=== PATIENT | female | born 1980 | race Caucasian/White ===

== ENCOUNTER 2020-11-14 14:06 | Outpatient (REF) | payer OTHER, SELFPAY ==
--- NOTE | 2020-11-14 | MM_ITS ---
EXAMINATION: MM SCREENING DIGITAL BREAST TOMOSYNTHESIS, BILATERAL CLINICAL INFORMATION: Screening. Asymptomatic. Family history breast cancer, mother, age 56. The lifetime risk of breast cancer based on the Tyrer-Cuzick Model is 26%. COMPARISON: Mammography: 03/29/2017 TECHNIQUE: Digital breast tomosynthesis is performed in both the craniocaudal and mediolateral oblique views along with computer-aided detection (CAD). Synthesized 2D images are generated from the tomosynthesis. FINDINGS: The breasts are heterogeneously dense, which may obscure small masses (ACR BI-RADS breast composition Category c). There are no significant masses, abnormal calcifications, or other abnormalities. Breast tissue composition borders on average fibroglandular. The axilla and skin contours are unremarkable. MM/MM tomosynthesis screening BI IMPRESSION: No significant changes from baseline exam 2016. ASSESSMENT: BI-RADS 1: Negative RECOMMENDATION: Routine annual mammography screening. This patient's information was entered into a reminder system with a target due date for their next mammogram.
== END 2020-11-14 14:07 | disposition home or self-care (01) ==
LOC: HO.MAMMO 14:06
PROVIDERS: PCP Internal Medicine; Visit Provider Psychiatry & Neurology Psychiatry
DX: Z12.31 Encounter for screening mammogram for malignant neoplasm of breast (principal)
CPT/HCPCS: 77063; 77067

== ENCOUNTER 2021-08-01 09:58 | Outpatient (REF) | payer OTHER, SELFPAY ==
[2021-08-02 12:45] LABS: BV Int Neg Control Negative (Negative); BV Int Pos Control Positive (Positive)
[2021-08-06 22:03] LABS: HPV mRNA E6/E7 rflx Not Detected (Not Detected)
== END 2021-08-01 09:59 | disposition home or self-care (01) ==
LOC: HO.LAB 09:58
PROVIDERS: Visit Provider Advanced Practice Midwife
DX: Z01.411 Encounter for gynecological examination (general) (routine) with abnormal findings (principal); Z11.3 Encounter for screening for infections with a predominantly sexual mode of transmission; Z11.51 Encounter for screening for human papillomavirus (HPV); N89.8 Other specified noninflammatory disorders of vagina
CPT/HCPCS: 87480; 87510; 87624; 87660; 88142

== ENCOUNTER 2021-12-15 16:25 | Outpatient (REF) | payer OTHER, SELFPAY ==
--- NOTE | ~2021-12-15 | MM_ITS ---
EXAMINATION: MM SCREENING DIGITAL BREAST TOMOSYNTHESIS, BILATERAL CLINICAL INFORMATION: Screening. Asymptomatic. Family history breast cancer, mother. The lifetime risk of breast cancer based on the Tyrer-Cuzick Model is 26%. COMPARISON: Mammography: 11/14/2020, 03/29/2017 TECHNIQUE: Digital breast tomosynthesis is performed in both the craniocaudal and mediolateral oblique views along with computer-aided detection (CAD). Synthesized 2D images are generated from the tomosynthesis. FINDINGS: The breasts are heterogeneously dense, which may obscure small masses (ACR BI-RADS breast composition Category c). There are no significant masses, abnormal calcifications, or other abnormalities. Parenchymal pattern is similar to prior studies. There is no developing density or architectural abnormality. Breast tissue composition borders on average fibroglandular. The axilla and skin contours are unremarkable. No significant changes. MM/MM tomosynthesis screening BI IMPRESSION: No mammographic evidence of malignancy. ASSESSMENT: BI-RADS 1: Negative RECOMMENDATION: 1. Routine annual mammography screening. 2. The lifetime risk of breast cancer based on the Tyrer-Cuzick Model is 26%. Additional annual adjunct screening with breast MRI may be of benefit in women with a risk score of 20% or greater. This patient's information was entered into a reminder system with a target due date for their next mammogram.
== END 2021-12-15 16:26 | disposition home or self-care (01) ==
LOC: HO.MAMMO 16:25
PROVIDERS: PCP Internal Medicine; Visit Provider Internal Medicine
DX: Z12.31 Encounter for screening mammogram for malignant neoplasm of breast (principal)
CPT/HCPCS: 77063; 77067

== ENCOUNTER 2023-01-15 11:52 | Outpatient (REF) | payer OTHER, SELFPAY ==
--- NOTE | ~2023-01-15 | MM_ITS ---
EXAMINATION: MM SCREENING DIGITAL BREAST TOMOSYNTHESIS, BILATERAL CLINICAL INFORMATION: Screening. Asymptomatic. Family history breast cancer, mother. The lifetime risk of breast cancer based on the Tyrer-Cuzick Model is 24%. COMPARISON: Mammography: 12/15/2021, 11/14/2020, 03/29/2017 (baseline) TECHNIQUE: Digital breast tomosynthesis is performed in both the craniocaudal and mediolateral oblique views along with computer-aided detection (CAD). Synthesized 2D images are generated from the tomosynthesis. FINDINGS: The breasts are heterogeneously dense, which may obscure small masses (ACR BI-RADS breast composition Category c). Right breast parenchymal pattern is similar to prior study. There is no developing density or interval architectural abnormality in either breast shows abnormal calcifications. The bilateral axilla and skin contours are unremarkable. Left MLO view has question of nodular asymmetric density anterior breast within 2 cm of nipple. Patient will be recalled for additional imaging. MM/MM tomosynthesis screening BI IMPRESSION: Left: -Nodular asymmetric density anterior breast on MLO view possibly summation artifact. Right: -No mammographic evidence of malignancy. ASSESSMENT: BI-RADS 0: Incomplete - Need Additional Imaging Evaluation RECOMMENDATION: 1. Additional views of the left breast (spot MLO, standard ML). 2. Targeted ultrasound if warranted after review of the additional views. 3. Radiology department staff will contact the patient for additional imaging. This patient's information was entered into a reminder system with a target due date for their next mammogram.
== END 2023-01-15 11:53 | disposition home or self-care (01) ==
LOC: HO.MAMMO 11:52
PROVIDERS: PCP Internal Medicine; Visit Provider Internal Medicine
DX: Z12.31 Encounter for screening mammogram for malignant neoplasm of breast (principal)
CPT/HCPCS: 77063; 77067

== ENCOUNTER 2023-01-20 08:22 | Outpatient (REF) | payer OTHER, SELFPAY ==
--- NOTE | ~2023-01-20 | MM_ITS ---
EXAMINATION: MM DIAGNOSTIC DIGITAL BREAST TOMOSYNTHESIS, LEFT US DIAGNOSTIC ULTRASOUND BREAST, LEFT CLINICAL INFORMATION: Recall from screening for asymmetric density anterior breast on MLO view, possibly summation artifact. Family history breast cancer, mother. TC score 24%. COMPARISON: Prior mammography exams, most recent 01/15/2023. TECHNIQUE: Digital breast tomosynthesis is performed. 2D images are generated from the tomosynthesis. The following views are obtained: Spot MLO, standard ML. Ultrasound left breast is targeted to the anterior breasts 9:00 through 3:00 position. Grayscale imaging and color Doppler are performed without and with harmonics. FINDINGS: The breasts are heterogeneously dense, which may obscure small masses (ACR BI-RADS breast composition Category c). The additional views show benign-appearing fibroglandular tissue anterior upper left breast without architectural abnormality. Ultrasound demonstrates incidental grouped microcysts anterior 12:00 position under 1 cm in overall size. There is no solid mass or architectural abnormality or focal duct ectasia. Results are discussed with the patient at time of visit. MM/MM tomosynthesis added views L IMPRESSION: -Incidental grouped microcysts anterior 12:00 position under 1 cm. -No solid mass or architectural abnormality. -No significant changes from prior studies. ASSESSMENT: BI-RADS 2: Benign RECOMMENDATION: -Routine annual mammography screening. -Additional annual adjunct screening with breast MRI may be of benefit in women with a breast cancer lifetime risk score of 20% or greater. This patient's information was entered into a reminder system with a target due date for their next mammogram.
== END 2023-01-20 08:23 | disposition home or self-care (01) ==
LOC: HO.MAMMO 08:22
PROVIDERS: PCP Internal Medicine; Visit Provider Internal Medicine
DX: R92.2 Inconclusive mammogram (principal)
CPT/HCPCS: 76642; 77061; 77065

== ENCOUNTER 2023-05-06 09:14 | Outpatient (REF) | payer OTHER, SELFPAY ==
[2023-05-06 17:09] LABS: CT PCR NOT DETECTED (Not Detect.); NG PCR NOT DETECTED (Not Detect.)
[2023-05-07 13:45] LABS: BV Int Neg Control Negative (Negative); BV Int Pos Control Positive (Positive)
[2023-05-13 02:08] LABS: HPV mRNA E6/E7 rflx Not Detected (Not Detected)
== END 2023-05-06 09:15 | disposition home or self-care (01) ==
LOC: HO.LNP 09:14
PROVIDERS: PCP Nurse Practitioner Family; Visit Provider Advanced Practice Midwife
DX: Z01.419 Encounter for gynecological examination (general) (routine) without abnormal findings (principal); G43.909 Migraine, unspecified, not intractable, without status migrainosus; Z91.410 Personal history of adult physical and sexual abuse; Z20.2 Contact with and (suspected) exposure to infections with a predominantly sexual mode of transmission; Z79.899 Other long term (current) drug therapy
CPT/HCPCS: 0353U; 87480; 87510; 87624; 87660; 88142

== ENCOUNTER 2023-11-29 09:53 | Outpatient (REF) | payer OTHER, SELFPAY ==
[2023-11-29 13:41] LABS: MANUAL DIFF FLAG NO
[2023-11-29 13:46] LABS: Basophils Absolute Auto 0.1 X10*3/uL (0.0-0.2); Basophils Percent Auto 0.7 % (0-2); Eosinophils Absolute Auto 0.2 X10*3/uL (0.0-0.4); Hematocrit 40.1 % (37.0-47.0); Hemoglobin 13.8 g/dl (12.0-16.0); Imm Gran Abs Auto 0.02 X10*3/uL (0.00-0.03); Imm Gran Pct Auto 0.3 % (0.0-0.4); Lymphocytes Absolute Auto 2.8 X10*3/uL (1.2-4.9); Lymphocytes Percent Auto 35.8 % (20-40); Mean Corpuscular HGB Conc 34.4 g/dl (31.0-35.0); Mean Corpuscular Hemoglobin 30.5 pg (27.0-33.0); Mean Corpuscular Volume 88.7 fL (80.0-98.0); Mean Platelet Volume 10.9 fL (9.4-12.3); Monocytes Absolute Auto 0.6 X10*3/uL (0.1-1.2); Monocytes Percent Auto 7.4 % (2-11); Neutrophils Absolute Auto 4.1 x10*3/uL (2.0-8.3); Neutrophils Percent Auto 52.8 % (45-73); Platelet Count 230 X10*3/uL (160-400); Red Blood Count 4.52 X10*6/uL (4.20-5.50); Red Cell Distribution Width 12.8 % (11.0-16.0); White Blood Count 7.7 X10*3/uL (4.8-10.8)
[2023-11-29 13:49] LABS: Appearance Urine Turbid; Color Urine Dark Yellow; Glucose Urine UA Negative (Negative); Leukocyte Esterase Urine Moderate (2+) (Negative); Nitrite Urine Negative (Negative); UMIC TRIGGER UACC YES; Urine Blood Trace (Negative); Urine Ketones Trace mg/dL (Negative); Urine Protein Negative (Neg-Trace)
[2023-11-29 13:53] LABS: Bacteria Urine 1+ (None Seen); Hyaline Casts Urine 0-2 /LPF (0-2); RBC Urine 0-2 /HPF (0-2); UACC Culture Trigger YES
[2023-11-29 14:14] LABS: Alanine Aminotransferase 10 U/L (0-31); Alkaline Phosphatase 55 U/L (39-117); Anion Gap 11 (12-20); Aspartate Amino Transferase 13 U/L (5-31); Blood Urea Nitrogen 6 mg/dL (9-16); Calcium 9.4 mg/dL (8.4-10.2); Carbon Dioxide 25 mmol/L (22-29); Chloride 107 mmol/L (96-108); Cholesterol 179 mg/dL (<200); Estimated Glomerular Filt Rate > 60; Glucose Fasting 97 mg/dL (60-99); HDL Cholesterol 58 mg/dL (>40); LDL Cholesterol Calculated 107 mg/dL (<100); Potassium 3.6 mmol/L (3.3-5.1); Sodium 139 mmol/L (135-145); Triglycerides 72 mg/dL (<150)
[2023-11-29 14:30] LABS: TSH reflex Free T4 1.24 uIU/mL (0.32-4.0); Vitamin D 25-OH Total 37.5 ng/mL (>30)
== END 2023-11-29 09:54 | disposition home or self-care (01) ==
LOC: HO.HMGCLDS 09:53
PROVIDERS: PCP Nurse Practitioner Family; Visit Provider Nurse Practitioner Family
DX: Z00.00 Encounter for general adult medical examination without abnormal findings (principal); Z13.220 Encounter for screening for lipoid disorders; Z13.29 Encounter for screening for other suspected endocrine disorder; Z13.9 Encounter for screening, unspecified
CPT/HCPCS: 36415; 80053; 80061; 81001; 82306; 84443; 85025; 87086

== ENCOUNTER 2023-11-29 15:48 | Outpatient (AMB) | payer OTHER, SELFPAY ==
[2023-11-29 15:51] VITALS: BP 142/80; PULSE 67; O2SAT 95; BMI 22.5
--- NOTE | 2023-11-29 15:51 | A.OFFPC_ITS ---
Vital Signs 11/29/23 15:51 11/29/23 16:29 Height 5 ft 8 in Weight 148 lb 4 oz BMI 22.5 BP 142/80 H 100/70 Blood Pressure Location Lt brachial Rt brachial Position Sitting Sitting Pulse 67 Pulse Source Pulse Oximeter Pulse Oximetry (%) 95 Oxygen Delivery Method Room Air Intake Visit Reasons: Migraine/Stress/Anxiety Intake Note: Pt is here for Migraines anxiety and stress exacerbation and has FMLA paper work to be filled out Allergies latex Allergy (Intermediate, Verified 11/29/23 16:18) irritation Medication List - Last Reconciled 11/29/23 by Kristy Robbins, CURT bwyecbfjwm-smonffetfywbr-spss 50-300-40 mg (Fioricet) 1 cap PO Q4-6H PRN cholecalciferol (vitamin D3) 125 mcg PO DAILY lorazepam 0.5 mg PO BID PRN magnesium oxide 400 mg PO DAILY 30 days clwdg-[id number]-aug-epa-fish oil 300-250-1,000 mg 2 caps PO DAILY ondansetron 4 mg PO Q6-8H PRN sumatriptan succinate take 1 tab at onset of headache; if no relief may repeat 1 tab after at least 2 hrs; max = 4 tabs/24 hr PO Tobacco use date assessed: 11/29/23 Dental Screening Dental Screen Date: 11/29/23 Did you have a dental visit in the last 12 months?: Yes Did you have a dental problem in the last 6 months where you did not have access to dental care?: No Was dental information given to patient?: Patient has dentist HPI HPI Comments History of Present Illness Details 43-year-old female presents for anxiety, depression, and migraine follow-up She reports mild right sided headache. No current nausea, vomiting, photophobia, or phonophobia She reports increased anxiety and depression which she attributes work related stress and her migraines is related to her anxiety and depression She reports 10-year history of migraines. She states that she has never been evaluated by a neurologist She notes that her workplace recommended some time off from work to manage her current symptoms She notes that she is followed by a psychiatrist via telehealth every 6 months. She wants a referral to a therapist She notes that she is out sumatriptan, ondansetron, and magnesium oxide [facility] Medical History (Updated 06/07/23 @ 17:38 by Kasandra Nettles CNM) Insomnia Migraine Depression Anxiety Surgical History No pertinent past surgical history Family History Father No problems noted. Mother Breast cancer, Onset Age: 57 Osteoarthritis Brother No problems noted. Sister No problems noted. 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 Thad Noonan, Kerry Hathaway, Margarito Tovar and colleagues, with an educational corina from [employer]. Review of Systems Const Details: Const Denies chills, Denies fatigue, Denies fever(s), Denies headache(s) and Denies weakness ENT Denies dizziness and Denies headache(s) Card Denies chest pain, Denies lightheadedness, Denies dyspnea and Denies other (Palpitations) Resp Denies cough, Denies dyspnea, Denies wheezing and Denies other ( shortness of breath) GI Denies abdominal pain, Denies melena, Denies hematochezia, Denies change in bowel habits, Denies dyspepsia and Denies nausea Denies hematuria and Denies dysuria Musc Denies abnormal gait, Denies myalgias, Denies arthralgias, Denies numbness and Denies tingling Skin/Breast Denies rash, Denies unusual bruising and Denies wounds Neuro Denies abnormal gait, Denies dizziness, Denies headache(s), Denies memory loss, Denies numbness, Denies Sensory deficit (Neuro), Denies tingling and Denies weakness Psych Reports anxiety, Reports depression, Denies memory loss Endo Denies cold intolerance, Denies fatigue, Denies heat intolerance, Denies polydipsia and Denies polyuria Aller/Immun Denies wheezing Physical exam (Primary Care) Vital Signs: Last Vital Signs Pulse 67 11/29/23 15:51 BP 100/70 11/29/23 16:29 Pulse Ox 95 11/29/23 15:51 Oxygen Delivery Method Room Air 11/29/23 15:51 BMI result Body Mass Index 22.5 Tobacco/Smoking Status: Tobacco use Status Tobacco use date assessed 11/29/23 11/29/23 16:02 Patient Tobacco Use Status Never used Tobacco 11/29/23 16:02 e-Cigarette/Vaping Use Never Used 11/29/23 16:02 Thrive Assessment: Date of Thrive Assessment Date Thrive assessed 05/11/23 11/29/23 16:02 Const Other: General: no acute distress and well developed Nutritional Appearance: well nourished Orientation/consciousness: patient oriented x3 HENMT Head: Yes normocephalic and Yes atraumatic Eyes General: appearance normal, both eyes and all related structures Pupils: Equal, round and reactive pupils present EOM: EOMs intact bilaterally Resp Effort & Inspection: normal respiratory effort Auscultation: clear to auscultation bilaterally Cardio Rate: regular rate Rhythm: regular rhythm Heart sounds: S1 normal heart sound present, S2 normal heart sound present, no gallops, no murmurs and no rubs GI Palpation (GI): No Abdominal aortic bruit present, Soft to palpation, nontender, No hepatosplenomegaly present and No Rebound tenderness present Auscultation: normal bowel sounds General: Yes no CVA tenderness Back/Spine/Pelvis Back: no CVA tenderness Cervical Spine: cervical ROM normal and No Cervical spine tenderness Thoracic/Lumbar Spine: thoraco-lumbar ROM normal, No pain with thoraco-lumbar ROM, No thoracic spinal tenderness and No lumbar spinal tenderness Extrem General: Yes normal to inspection, No edema and No calf tenderness Skin General: warm and dry. Normal skin color. Normal skin turgor Lesions: no lesions Rashes: no rashes Trauma: no lacerations or abrasions Wounds: no wounds Nails: normal Neuro General: patient oriented x3, gait normal and no focal neuro deficit Cranial nerves: Yes Equal, round and reactive pupils present Cognition (Neuro): normal cognition Gait exam (Neuro): Normal gait present Sensory Exam: No Sensory deficit (Neuro) Psych Appearance: grossly normal Affect: normal affect Attitude: cooperative Thought process: Normal thought process present Assessment and Plan Assessment & Plan (1) Migraine: Code(s): G43.909 - Migraine, unspecified, not intractable, without status migrainosus Plan: Sumatriptan, ondansetron, and magnesium oxide refilled. Take as prescribed Routine exercise encouraged Referred to neurology She brought an FMLA form which will be filled out within 7-10 business days Follow-up in 1 month or return sooner with worsening or new symptoms Verbalized understanding and agreed with treatment plan (2) Anxiety: Code(s): F41.9 - Anxiety disorder, unspecified Plan: PHQ-9 and THEO-7 scores revealed Continue current treatment regimen Healthy diet and routine exercise encouraged Continue follow-up with psychiatrist as planned Message sent to our community navigator to connect with patient for a referral to a therapist Follow-up in 1 month or return sooner with worsening or new symptoms Verbalized understanding and agreed with treatment plan (3) Depression: Code(s): F32.9 - Major depressive disorder, single episode, unspecified Plan: As above Orders: Referrals Neurology Referral G43.909 - Migraine, unspecified, not intractable, without status migrainosus Medications: Refilled magnesium oxide 400 mg PO DAILY 30 days 30 tabs 2RF ondansetron 4 mg PO Q6-8H PRN 30 tabs 0RF nausea and vomiting sumatriptan succinate take 1 tab at onset of headache; if no relief may repeat 1 tab after at least 2 hrs; max = 4 tabs/24 hr PO 30 tabs 0RF Coding Level of Care Code Est Pt Level 4 (67579) Diagnoses Migraine G43.909 Anxiety F41.9 Depression F32.9
[2023-11-29 16:29] VITALS: BP 100/70
--- NOTE | 2023-11-30 09:18 | ...WebTmpl.AM.PHNO ---
PHQ-9 Over the last 2 weeks, how often have you been bothered by any of the following problems? 1. Little interest or pleasure in doing things: several days 2. Feeling down, depressed, or hopeless: more than half the days 3. Trouble falling or staying asleep, or sleeping too much: nearly every day 4. Feeling tired or having little energy: several days 5. Poor appetite or overeating: not at all 6. Feeling bad about yourself - or that you are a failure or have let yourself or your family down: more than half the days 7. Trouble concentrating on things, such as reading the newspaper or watching television: more than half the days 8. Moving or speaking so slowly that other people could have noticed. Or the opposite - being so fidgety or restless that you have been moving around a lot more than usual: more than half the days 9. Thoughts that you would be better off or of hurting yourself in some way: not at all Total score: 13 Depression Screening Interpretation: Positive Depression Screening Done: Yes 87046 - PHQ-9 Billing: Yes Source: Developed by Drs. Thad Noonan, Kerry Hathaway, Margarito Tovar and colleagues, with an educational corina from [employer]. THEO-7 AMB Questionnaire THEO-7 Date THEO - 7 assessed: 05/11/23 Feeling nervous, anxious, or on edge: 3 = Nearly every day Not being able to stop or control worryin = Nearly every day Worrying too much about different things: 3 = Nearly every day Trouble relaxin = Nearly every day Being so restless that it is hard to sit still: 2 = More than half the days Becoming easily annoyed or irritable: 3 = Nearly every day Feeling afraid as if something awful might happen: 2 = More than half the days Total THEO-7 score (0-4 normal; 5-9 mild; 10-14 moderate; 15-21 severe): 19 Source: Developed by Drs. Thad Noonan, Kerry Hathaway, Margarito Tovar and colleagues, with an educational corina from [employer]. THEO-7 Assessment Billing THEO-7 Assessment Tool: THEO-7 Assessment [id number]
== END 2023-11-29 16:54 | disposition home or self-care (01) ==
PROVIDERS: PCP Nurse Practitioner Family; Visit Provider Nurse Practitioner Family
DX: G43.909 Migraine, unspecified, not intractable, without status migrainosus (principal); F41.9 Anxiety disorder, unspecified; F32.9 Major depressive disorder, single episode, unspecified
CPT/HCPCS: 99214

== ENCOUNTER 2024-03-22 13:44 | Outpatient (REF) | payer MEDICAID, SELFPAY ==
[2024-03-22 16:17] LABS: Hematocrit 38.8 % (37.0-47.0); Hemoglobin 13.5 g/dl (12.0-16.0); Mean Corpuscular HGB Conc 34.8 g/dl (31.0-35.0); Mean Corpuscular Volume 89.2 fL (80.0-98.0); Mean Platelet Volume 10.6 fL (9.4-12.3); Platelet Count 236 X10*3/uL (160-400); Red Blood Count 4.35 X10*6/uL (4.20-5.50); Red Cell Distribution Width 13.3 % (11.0-16.0); White Blood Count 13.7 X10*3/uL (4.8-10.8)
[2024-03-22 16:25] LABS: Estimated Average Glucose 103 mg/dL; Hemoglobin A1c % 5.2 % (<6.0)
[2024-03-22 16:47] LABS: Alanine Aminotransferase 21 U/L (0-31); Albumin Level 4.3 g/dL (3.5-5.0); Alkaline Phosphatase 59 U/L (39-117); Anion Gap 15 (12-20); Aspartate Amino Transferase 23 U/L (5-31); Bilirubin Direct 0.2 mg/dL (0.0-0.5); Bilirubin Total 0.6 mg/dL (0.0-1.0); Blood Urea Nitrogen 8 mg/dL (9-16); Calcium 9.5 mg/dL (8.4-10.2); Carbon Dioxide 23 mmol/L (22-29); Chloride 106 mmol/L (96-108); Cholesterol 214 mg/dL (<200); Estimated Glomerular Filt Rate > 60; Glucose Random 91 mg/dL (60-115); HDL Cholesterol 67 mg/dL (>40); LDL Cholesterol Calculated 130 mg/dL (<100); Potassium 3.9 mmol/L (3.3-5.1); Sodium 140 mmol/L (135-145); Total Protein 7.4 g/dL (6.5-8.0); Triglycerides 89 mg/dL (<150)
[2024-03-22 17:08] LABS: Free T4 (Free Thyroxine) 0.73 ng/dL (0.71-1.85); Thyroid Stimulating Hormone 1.57 uIU/mL (0.32-4.0); Vitamin D 25-OH Total 45.7 ng/mL (>30)
[2024-03-23 04:26] LABS: HBsAGNum1 0.21 S/CO (0.00-0.99); Hepatitis B Surface Antigen Negative (Negative)
[2024-03-23 04:34] LABS: Hepatitis A Antibody IgG Nonreactive (Nonreactive); ~Hepatitis A Antibody IgG 0.55 S/CO (0.00-0.99)
== END 2024-03-22 13:45 | disposition home or self-care (01) ==
LOC: HO.HHCL 13:44
PROVIDERS: Visit Provider Family Medicine
DX: Z00.00 Encounter for general adult medical examination without abnormal findings (principal); Z68.24 Body mass index [BMI] 24.0-24.9, adult; G43.909 Migraine, unspecified, not intractable, without status migrainosus; F33.9 Major depressive disorder, recurrent, unspecified; M67.432 Ganglion, left wrist
CPT/HCPCS: 36415; 80048; 80061; 80076; 82306; 83036; 84439; 84443; 85027; 86708; 87340

== ENCOUNTER → 2024-04-03 09:30 | Outpatient (BNV) | payer MEDICAID, SELFPAY | PROVIDERS: PCP Family Medicine; Visit Provider Radiology Diagnostic Radiology | DX: Z12.31 Encounter for screening mammogram for malignant neoplasm of breast (principal) | CPT/HCPCS: 77063; 77067 ==

== ENCOUNTER 2024-04-03 09:32 | Outpatient (REF) | payer MEDICAID, SELFPAY | END 2024-04-03 09:33 | disposition home or self-care (01) | LOC: HO.MAMMO 09:32 | PROVIDERS: PCP Family Medicine; Visit Provider Family Medicine | DX: Z12.31 Encounter for screening mammogram for malignant neoplasm of breast (principal) | CPT/HCPCS: 77063; 77067 ==

== ENCOUNTER 2025-06-07 15:51 | Outpatient (REF) | payer MEDICAID, SELFPAY | END 2025-06-07 15:52 | disposition home or self-care (01) | LOC: HO.MAMMO 15:51 | PROVIDERS: Visit Provider Family Medicine | DX: Z12.31 Encounter for screening mammogram for malignant neoplasm of breast (principal) | CPT/HCPCS: 77063; 77067 ==

== ENCOUNTER → 2025-06-07 16:30 | Outpatient (BNV) | payer MEDICAID, SELFPAY | PROVIDERS: Visit Provider Internal Medicine | DX: Z12.31 Encounter for screening mammogram for malignant neoplasm of breast (principal) | CPT/HCPCS: 77063; 77067 ==

== ENCOUNTER 2025-07-10 15:30 | Outpatient (REF) | payer OTHER, MEDICAID, SELFPAY ==
--- OUTSIDE RECORDS SUMMARY | 2025-07-09 11:45 | XMS_ITS | Encounter Summary ---
Author Organization [employer] Address [address] [place] [address] [address] [address] Care Team Providers Care Biomedical Repair Technician Name Role Phone Giovana Reyes DO Primary Care Provider [phone] Reason for Referral * Consultation (Urgent) - Authorized Specialty Diagnoses / Procedures Referred By Lorenzo sandoval Referred To Contact Behavioral Health Diagnoses Anxiety Giovana Reyes DO [address] [place] [address] Phone: tel: fax: Referral ID Status Reason Start Date Expiration Date Visits Requested Visits Authorized [id number] Authorized Specialty Services Required 07/09/2025 07/09/2026 1 1 * Consultation (Urgent) - Pending Review Specialty Diagnoses / Procedures Referred By Lorenzo sandoval Referred To Contact Gastroenterology Diagnoses Alternating constipation and diarrhea Bloody diarrhea Giovana Reyes DO [address] [place] [address] Phone: tel: fax: Referral ID Status Reason Start Date Expiration Date Visits Requested Visits Authorized [id number] Pending Review Specialty Services Required 07/09/2025 07/09/2026 1 1 Encounter Details Date Type Department Care Team (Late st Contact Info) Description 07/09/2025 11:45 AM EDT Office Visit [facility] [address] [place] [address] Giovana Reyes DO [address] [place] [address] Anxiety (Primary Dx); Alternating constipation and diarrhea; Bloody diarrhea; Chronic migraine Social History Tobacco Use Types Packs/Day Years Used Date Smoking Tobacco: Never Smokeless Tobacco: Never Alcohol Use Standard Drinks/Week Comments Yes 1 (1 standard drink = 0.6 oz pur e alcohol) Alcohol Answer Date Recorded How often do you have a drink containing alcohol ? 1 07/09/2025 How many drinks containing a lcohol do you have on a typical day when you are drinking? 0 07/09/2025 How often do you have six or more drinks on one occasion? 0 07/09/2025 Depression Answer Date Recorded Patient Health Questionnaire-9 Score 4 07/09/2025 Patient Health Questionnaire-9 Score 4 07/09/2025 Last PHQ-9: Questionnaire Data Not on file 0 07/09/2025 Housing Stability Answer Date Recorded What is your housing situation today? I have christiano leon 07/09/[address] you li ve. Do you have problems with any of the following? None of the above 07/09/2025 Food Insecurity Answer Date Recorded Within the past 12 months, y ou worried that your food would run out before you got money to buy more: Sometimes True 2024 Within the past 12 months,th e food you bought just didn't last and you didn't have enough money to get more: Sometimes True 07/09/2025 Transportation Answer Date Recorded In the past 12 months, has l ack of transportation kept you from medical appts, meetings, work or from getting things needed for daily living? No 07/09/2025 Utilities Answer Date Recorded In the past 12 months, has t he electric, gas, oil or water company threatened to shut off services in your home? No 07/09/2025 Depression Answer Date Recorded Patient Health Questionnaire-2 Score 0 07/09/2025 Internet Access Answer Date Recorded Internet Access Q1 Yes 07/09/2025 Internet Access Q2 Not on file 07/09/2025 Comments No Sex and Gender Information Value Date Recorded Sex Assigned at Female 03/20/2024 2:03 PM EDT Legal Sex Female 2:02 PM EDT Gender Identity Other 03/21/2024 10:13 AM EDT Sexual Orientation Don't know 03/21/2024 10 :13 AM EDT documented as of this encounter Last Filed Vital Signs Vital Sign Reading Time Taken Comments Blood Pressure 132/70 07/09/2025 12:19 PM EDT Pulse 70 07/09/2025 12:19 PM EDT Temperature 36.6 C (97.8 F) 07/09/2025 12:19 PM EDT Respiratory Rate 18 07/09/2025 12:19 PM EDT Oxygen Saturation 97% 07/09/2025 12:19 PM EDT Inhaled Oxygen Concentration - - Weight 68.5 kg (151 lb 2 oz) 07/09/2025 12:19 PM EDT Height 167.6 cm (5' 6 ) 07/09/2025 12:19 PM EDT Body Mass Index 24.39 07/09/2025 12:19 PM EDT documented in this encounter Functional Status * Over the past 2 weeks, how often have you been bothered by any of the following problems? Question Answer Date of Assessment Author Patient Health Questionnaire -2 Score 0 07/09/2025 1:40 PM EDT Cassidy Thurman MA * Little interest or pleasure in doing things Answer Date of Assessment Author Not at all 07/09/2025 1:40 PM EDT Shelby Thumran MA * Feeling down, depressed, or hopeless Answer Date of Assessment Author Not at all 07/09/2025 1:40 PM EDT Shelby Thurman MA * Trouble falling or staying asleep, or sleeping too much Answer Date of Assessment Author More than half the days 07/09/2025 1:40 PM EDT Cassidy Amaya MA * Feeling tired or having little energy Answer Date of Assessment Author Not at all 07/09/2025 1:40 PM EDT Shelby Thurman MA * Poor appetite or overeating Answer Date of Assessment Author Not at all 07/09/2025 1:40 PM EDT Shelby Thurman MA * Feeling bad about yourself - or that you are a failure or have let yourself or your family down Answer Date of Assessment Author Not at all 07/09/2025 1:40 PM EDShelby Tian MA * Trouble concentrating on things, such as reading the newspaper or watching television Answer Date of Assessment Author More than half the days 07/09/2025 1:40 PM EDT Cassidy Amaya MA * Moving or speaking so slowly that other people could have noticed? Or the opposite - being so fidgety or restless that you have been moving around a lot more than usual. Answer Date of Assessment Author Not at all 07/09/2025 1:40 PM EDT Shelby Thurman MA * Thoughts that you would be better off or hurting yourself in some way Answer Date of Assessment Author Not at all 07/09/2025 1:40 PM PADMINIT Shelby Thurman MA * Patient Health Questionnaire-9 Score Answer Date of Assessment Author 4 07/09/2025 1:40 PM PADMINIT Shelby Thurman MA * How difficult have these problems made it for you to do your work, take care of things at home, or get along with other people? Answer Date of Assessment Author Very difficult 07/09/2025 1:40 PM PADMINIT Shelby Thurman MA * Over the last 2 weeks, how often have you been bothered by any of the following problems? Question Answer Date of Assessment Author Feeling nervous, anxious, or on edge 2 07/09/2025 1:42 PM EDT Cassidy Thurman MA Not being able to stop or co ntrol worrying 2 07/09/2025 1:42 PM PADMINIT Cassidy Thurman MA Worrying too much about diff erent things 3 07/09/2025 1:42 PM EDT Cassidy Thurman MA Trouble relaxing 3 07/09/2025 1:42 PM EDT Cassidy Amaya MA Being so restless that it is hard to sit still 2 07/09/2025 1:42 PM PADMINIT Cassidy Thurman MA Becoming easily annoyed or irritable 0 07/09/2025 1:42 PM PADMINIT Cassidy Thurman MA Feeling afraid as if somethi ng awful might happen 2 07/09/2025 1:42 PM EDCassidy Tian MA THEO-7 Total Score 14 07/09/2025 1:42 PM EDT Cassidy Thurman MA documented as of this encounter Plan of Treatment Scheduled Orders Name Type Priority Associated Diagnoses Orde r Schedule T4, Free Lab Routine Anxiety Alternating constipation and diarrhea Bloody diarrhea Chronic migraine Expected: 07/09/2025 (Approximate), Expires: 07/09/2026 Lipid Panel, Standard Lab Routine Anxiety Alternating constipation and diarrhea Bloody diarrhea Chronic migraine Expected: 07/09/2025 (Approximate), Expires: 07/09/2026 TSH Lab Routine Anxiety Alternating constipation and diarrhea Bloody diarrhea Chronic migraine Expected: 07/09/2025 (Approximate), Expires: 07/09/2026 Vitamin D, 25-Hydroxy, Total, Immunoassay Lab Routine Anxiety Alternating constipation and diarrhea Bloody diarrhea Chronic migraine Expected: 07/09/2025 (Approximate), Expires: 07/09/2026 Hepatic Function Panel Lab Routine Anxiety Alternating constipation and diarrhea Bloody diarrhea Chronic migraine Expected: 07/09/2025 (Approximate), Expires: 07/09/2026 Hemoglobin A1c Lab Routine Anxiety Alternating constipation and diarrhea Bloody diarrhea Chronic migraine Expected: 07/09/2025 (Approximate), Expires: 07/09/2026 CBC Lab Routine Anxiety Alternating constipation and diarrhea Bloody diarrhea Chronic migraine Expected: 07/09/2025, Expires: 07/09/2026 Basic Metabolic Panel Lab Routine Anxiety Alternating constipation and diarrhea Bloody diarrhea Chronic migraine Expected: 07/09/2025 (Approximate), Expires: 07/09/2026 Hepatitis B surface antigen, EIA Lab Routine Anxiety Alternating constipation and diarrhea Bloody diarrhea Chronic migraine Expected: 07/09/2025 (Approximate), Expires: 07/09/2026 Chlamydia/N. Gonorrhoeae RNA, TMA, Urogenitial Microbiology Routine Anxiety Alternating constipation and diarrhea Bloody diarrhea Chronic migraine Ordered: 07/09/2025 HIV-1/2 Antigen and Antibodies, Fourth Generation, with Reflexes Lab Routine Anxiety Alternating constipation and diarrhea Bloody diarrhea Chronic migraine Expected: 07/09/2025 (Approximate), Expires: 07/09/2026 Hepatitis C Antibody with Reflex to HCV, RNA, Quantitative, Real-Time PCR Lab Routine Anxiety Alternating constipation and diarrhea Bloody diarrhea Chronic migraine Expected: 07/09/2025, Expires: 07/09/2026 RPR (Monitor) with Reflex to Titer Lab Routine Anxiety Alternating constipation and diarrhea Bloody diarrhea Chronic migraine Expected: 07/09/2025, Expires: 07/09/2026 Hepatitis B Surface Antibody, Qualitative Lab Routine Anxiety Alternating constipation and diarrhea Bloody diarrhea Chronic migraine Expected: 07/09/2025 (Approximate), Expires: 07/09/2026 Stool - Gastrointestinal panel Microbiology Routine Anxiety Alternating constipation and diarrhea Bloody diarrhea Chronic migraine Expected: 07/09/2025 (Approximate), Expires: 07/09/2026 Leukocytes Stool Qualitative Lab Routine Anxiety Alternating constipation and diarrhea Bloody diarrhea Chronic migraine Expected: 07/09/2025, Expires: 07/09/2026 Giardia Antigen, EIA, Stool Lab Routine Anxiety Alternating constipation and diarrhea Bloody diarrhea Chronic migraine Expected: 07/09/2025, Expires: 07/09/2026 Calprotectin, Stool Lab Routine Bloody diarrhea Expected: 07/09/2025, Expires: 07/09/2026 Scheduled Referrals Name Type Priority Associated Diagnoses Order Schedule Referral to Gastroenterology Outpatient Referral Urgent Alternating constipation and diarrhea Bloody diarrhea Expected: 07/09/2025 (Approximate), Expires: 07/09/2026 Referral to Behavioral Health Outpatient Referral Urgent Anxiety Expected: 07/09/2025 (Approximate), Expires: 01/06/2027 documented as of this encounter Visit Diagnoses Diagnosis Anxiety- Primary Anxiety state, unspecified Alternating constipation and diarrhea Bloody diarrhea Diarrhea Chronic migraine documented in this encounter Additional Health Concerns Assessment Noted Time PHQ-9 Depression Total Score: 4 07/09/20 25 1:40 PM EDT documented as of this encounter Care Teams Biomedical Repair Technician Relationship Specialty Start Date End Date Giovana Reyes DO [address] [place] [id number] PCP - General Family Medicine 03/22/24 documented as of this encounter
--- OUTSIDE RECORDS SUMMARY | 2025-07-10 16:26 | XMS_ITS | Encounter Summary ---
Author Organization [employer] Address [address] [facility] [address] [place] [address] Care Team Providers Care Security Orderly Name Role Phone PipoGiovana andrade Primary Care Provider [phone] Encounter Details Date Type Department Care Team (Latest Contact Info) Description 07/05/2025 Travel Social History Tobacco Use Types Packs/Day Years Used Date Smoking Tobacco: Never Smokeless Tobacco: Never Alcohol Use Standard Drinks/Week Comments Yes 1 (1 standard drink = 0.6 oz pur e alcohol) Depression Answer Date Recorded Patient Health Questionnaire-9 Score 4 03/22/2024 Patient Health Questionnaire-9 Score 4 03/22/2024 Last PHQ-9: Questionnaire Data Not on file 0 03/22/2024 Housing Stability Answer Date Recorded What is your housing situation today? I have christiano leon 03/22/[address] you li ve. Do you have problems with any of the following? None of the above 03/22/2024 Food Insecurity Answer Date Recorded Within the past 12 months, y ou worried that your food would run out before you got money to buy more: Sometimes True 2023 Within the past 12 months,th e food you bought just didn't last and you didn't have enough money to get more: Sometimes True 03/22/2024 Transportation Answer Date Recorded In the past 12 months, has l ack of transportation kept you from medical appts, meetings, work or from getting things needed for daily living? No 03/22/2024 Utilities Answer Date Recorded In the past 12 months, has t he electric, gas, oil or water company threatened to shut off services in your home? Yes 03/22/2024 Depression Answer Date Recorded Patient Health Questionnaire-2 Score 2 03/22/2024 Comments Unknown Sex and Gender Information Value Date Recorded Sex Assigned at Female 03/20/2024 2:03 PM EDT Legal Sex Female 2:02 PM EDT Gender Identity Other 03/21/2024 10:13 AM EDT Sexual Orientation Don't know 03/21/2024 10 :13 AM EDT documented as of this encounter Plan of Treatment Not on file documented as of this encounter Visit Diagnoses Not on filedocumented in this encounter Additional Health Concerns Assessment Noted Time PHQ-9 Depression Total Score: 4 03/22/20 10:20 AM EDT documented as of this encounter Care Teams Security Orderly Relationship Specialty Start Date End Date Giovana Reyes DO [address] [place] [phone] PCP - General Family Medicine 03/22/24 documented as of this encounter
--- OUTSIDE RECORDS SUMMARY | 2025-07-10 16:26 | XMS_ITS | Encounter Summary ---
Author Organization [employer] Address [address] [place] [address] 7 [place] [address] Care Team Providers Care Development And Housing Director Name Role Phone Giovana Reyes DO Primary Care Provider + [phone] Reason for Visit * Reason Onset Date Comments Appointment Request 06/25/2025 Encounter Details Date Type Department Care Team ([facility] st Contact Info) Description 06/25/2025 Telephone [facility] [address] [place], [place] [phone] Giovana Reyes DO [address] [place], [place] [phone] Appointment Request Social History Tobacco Use Types Packs/Day Years [...] AM EDT documented as of this encounter Miscellaneous Notes * Telephone Encounter - Wing Pat RN - 07/05/2025 1:37 PM EDT Tc to pt regarding message below. Pt reports ongoing headaches, anxiety, mood swings, and GI symptoms for 1 month after stopping mirtazapine. Denies any suicidal thoughts. Headaches are triggered by work stress, light and can be relieved by dark quiet rooms, lidocaine sticks and benadryl at night. Stomach discomfort occurs when trying to take acetaminophen and excedra. Had three days of vomiting and diarrhea last week with blood in stool. Pt does not have any vomiting or diarrhea currently but does have some nausea. Pt reports she can go to work though symptoms can sometimes overwhelm her or prevent her from going to work. Pt's psychologist suggested pt restart mirtazapine but pt declined and wanted to see PCP to see if there were other options. Gave pt appt for 07/09 at 11:45 am. Advised pt to go to ER if vomiting and diarrhea return, or if she has suicidal thoughts. Pt verbalized understanding and agreement with plan. * Telephone Encounter - Anette Khoury - 07/05/2025 8:08 AM EDT Tc from pt requesting a call back regarding prior message Contact pt at [phone] * Telephone Encounter - Eliz Arteaga RN - 06/25/2025 12:23 PM EDT TC returned to patient [phone] however no answer, RN left VM requesting CB to red team nurses.TC placed to [phone] however also no answer, RN left VM requesting CB to red team nurse. Patient to f/u PRN. * Telephone Encounter - Brayan Mclean - 06/25/2025 8:39 AM EDT Tc from pt requesting to schedule OV with pcp. Pt denied immediate concerns and states she would like to discuss being put back on psyche medication. Please contact pt at [phone]. documented in this encounter Plan of Treatment Not on file documented as of this encounter Visit Diagnoses Not on filedocumented in this encounter Additional Health Concerns Assessment Noted Time PHQ-9 Depression Total Score: 4 03/22/20 24 10:20 AM EDT documented as of this encounter Care Teams Development And Housing Director Relationship Specialty Start Date End Date Giovana Reyes DO [address] [place] [phone] PCP - General Family Medicine 03/22/24 documented as of this encounter
--- OUTSIDE RECORDS SUMMARY | 2025-07-10 16:26 | XMS_ITS | Encounter Summary ---
Author Organization [employer] Address [address] [place] [address] 7 [place] [address] Care Team Providers Care Soldering Machine Operator Automatic Name Role Phone Giovana Reyes DO Primary Care Provider + [phone] Reason for Visit * Reason Onset Date Comments Chart Prep 07/06/2025 Encounter Details Date Type Department Care Team ([facility] st Contact Info) Description 07/06/2025 Telephone [facility] [address] [place], [place] [phone] Giovana Reyes DO [address] [place], [place] [phone] Chart Prep Social History Tobacco Use Types Packs/Day Years [...] encounter Miscellaneous Notes * Telephone Encounter - Cassidy Thurman MA - 07/06/2025 2:26 PM EDT Chart Prep Labs: done Images: done Referrals: complete Vaccines due: Covid and Hep B Screenings: colonoscopy and LMP Overdue care gaps: SBIRT, SDOH, PHQ-9, THEO-7, Oral health screening, and Disability screen documented in this encounter Plan of Treatment Not on file documented as of this encounter Visit Diagnoses Not on filedocumented in this encounter Additional Health Concerns Assessment Noted Time PHQ-9 Depression Total Score: 4 03/22/20 24 10:20 AM EDT documented as of this encounter Care Teams Soldering Machine Operator Automatic Relationship Specialty Start Date End Date Giovnaa Reyes DO [address] [place] [phone] PCP - General Family Medicine 03/22/24 documented as of this encounter
--- OUTSIDE RECORDS SUMMARY | 2025-07-10 16:26 | XMS_ITS | Encounter Summary ---
Author Organization [employer] Address [address] 7t [place] [address] Care Team Providers Care Cooler Service Supervisor Name Role Phone Giovana Reyes DO Primary Care Provider + [phone] Encounter Details Date Type Department Care Team ([facility] st Contact Info) Description 12/30/2024 Orders Only [facility] [address] [place], [place] [phone] ProviderFarhana MD Social History Tobacco Use Types Packs/Day Years [...] on file documented as of this encounter Procedures Procedure Name Priority Date/Time Associated Diagnosis Comments HM PAP/HPV Routine 05/10/2023 5:58 PM EDT HM PAP/HPV Routine 08/04/2021 6:00 PM EDT documented in this encounter Results * HM PAP/HPV (05/10/2023 5:58 PM EDT) Historical Provider HEALTH MAINTENANCE Final Result * HM PAP/HPV (08/04/2021 6:00 PM EDT) Historical Provider MD HEALTH MAINTENANCE Final Result documented in this encounter Visit Diagnoses Not on filedocumented in this encounter Additional Health Concerns Assessment Noted Time PHQ-9 Depression Total Score: 4 03/22/20 10:20 AM EDT documented as of this encounter Care Teams Cooler Service Supervisor Relationship Specialty Start Date End Date Giovana Reyes DO [address] [place] [address] PCP - General Family Medicine 03/22/24 documented as of this encounter"
--- OUTSIDE RECORDS SUMMARY | 2025-07-10 16:26 | XMS_ITS | Encounter Summary ---
Author Organization [employer] Address [address] [facility] 7t [place] [address] Care Team Providers Care Classroom Technology Technician Name Role Phone AmyGiovana Primary Care Provider [phone] Encounter Details Date Type Department Care Team (Latest Contact Info) Description 07/09/2025 Travel Social History Tobacco Use Types Packs/Day [...] AM EDT documented as of this encounter Functional Status * Over the [...] PM EDT Shelby Thurman MA * Trouble concentrating on things, such [...] 1:40 PM EDT Shelby Thurman MA * Patient Health Questionnaire-9 Score Answer Date of Assessment Author 4 07/09/2025 1:40 PM EDT Shelby Thurman MA * How difficult have these problems made it for you to do your work, take care of things at home, or get along with other people? Answer Date of Assessment Author Very difficult 07/09/2025 1:40 PM EDT Shelby Thurman MA * Over the last 2 weeks, how often have you been bothered by any of the following problems? Question Answer Date of Assessment Author Feeling nervous, anxious, or on edge 2 07/09/2025 1:42 PM EDT Cassidy Thurman MA Not being able to stop or co ntrol worrying 2 07/09/2025 1:42 PM EDT Cassidy Thurman MA Worrying too much about diff erent things 3 07/09/2025 1:42 PM EDT Cassidy Thurman MA Trouble relaxing 3 07/09/2025 1:42 PM EDT Cassidy Amaya MA Being so restless that it is hard to sit still 2 07/09/2025 1:42 PM EDT Cassidy Thurman MA Becoming easily annoyed or irritable 0 07/09/2025 1:42 PM EDT Cassidy Thurman MA Feeling afraid as if [...] documented as of this encounter Care Teams Classroom Technology Technician Relationship Specialty Start Date End Date Giovana Reyes DO [address] [place] [address] PCP - General Family Medicine 03/22/24 documented as of this encounter
--- OUTSIDE RECORDS SUMMARY | 2025-07-10 16:26 | XMS_ITS | Clinical Summary ---
Author Organization [employer] Address [address] [place] [address] 7t [place] [address] Care Team Providers Care Masseur/Masseuse Name Role Phone Giovana Reyes DO Primary Care Provider [phone] Allergies No known active allergies Medications * This document contains information received from the source organization and may not represent a complete record from that organization. sertraline (Zoloft) 100 MG tablet TAKE ONE TABLET BY MOUTH EVERY EVENING AT BEDTIME 4 Active SUMAtriptan (Imitrex) 50 MG tablet TAKE 1 TABLET BY MOUTH ONCE DAILY NEEDED FOR MIGRAINE 4 Active ondansetron ODT (Zofran-ODT) 4 MG disintegrating tablet DISSOLVE ONE TABLET BY MOUTH EVERY 6 TO 8 HOURS NEEDED FOR NAUSEA AND VOMITING 4 Active mirtazapine (Remeron) 15 MG tablet TAKE ONE TABLET BY MOUTH EVERY EVENING AT BEDTIME 4 Active magnesium oxide (Mag-Ox) 400 MG tablet TAKE ONE TABLET BY MOUTH EVERY EVENING AT BEDTIME 4 Active Multiple Vitamin (Daily-Kimberly Multivitamin) tablet Take 1 tablet by mouth Once per day. 4 Active cholecalciferol (Vitamin D-3) 125 MCG (5000 UT) capsule TAKE ONE CAPSULE BY MOUTH EVERY EVENING AT BEDTIME 4 Active polycarbophil (Fibercon) 625 MG tablet Take 1 tablet (625 mg) by mouth 2 times daily. 180 tablet 3 5 07/09/20 26 Active hydrOXYzine pamoate (Vistaril) 25 MG capsule Take 1 capsule (25 mg) by mouth every 6 (six) hours if needed for anxiety (and insomnia). 60 capsule 1 5 07/09/20 26 Active Active Problems Problem Noted Date Diagnosed Date Chronic migraine 03/22/2024 Assessment & Plan (03/22/2024 3:27 PM EDT): Significantly improved -cont mag oxide daily -cont craniosacral therapy -cont motrin/imitrex prn -f/u with neurology as scheduled, will get copy of initial eval Anxiety 03/22/2024 Major depression, recurrent, chronic 03/22/2024 Assessment & Plan (03/22/2024 3:27 PM EDT): With anxiety and probable PTSD -she denies any SI/HI -she has the number for crisis -cont meds per psychiatry -f/u with psychiatry as scheduled Healthcare maintenance 03/22/2024 Assessment & Plan (03/22/2024 3:21 PM EDT): -s/p Tdap MARCH 2017 -refer for pap next visit -check fasting labs -STI/HIV screening Resolved Problems Problem Noted Date Diagnosed Date Resolved Date BMI 24.0-24.9, adult 03/22/2024 024 Ganglion cyst of wrist, left 03/22/2024 07/09/2025 Assessment & Plan (03/22/2024 3:22 PM EDT): Bothersome sx with increased growth x 2 years -will contact [facility] re: required paperwork Encounters * This document contains information received from the source organization and may not represent a complete record from that organization. Date Type Department Care Team Description 07/09/2025 11:45 AM EDT Office Visit [facility] [address] [place] [address] Giovana Reyes DO Anxiety (Primary Dx); Alternating constipation and diarrhea; Bloody diarrhea; Chronic migraine 07/09/2025 Travel 07/08/2025 Travel 07/06/2025 Telephone [facility] [address] [place] [address] Giovana Reyes DO Chart Prep 07/05/2025 Travel 06/25/2025 Telephone [facility] [place] [address] Giovana Reyes DO Appointment Request 06/07/2025 Orders Only [facility] [address] [place] [address] Giovana Reyes DO from Last 3 Months Immunizations Immunization Administration Dates Next Due Influenza injectable quadriv alent IIV4 with preservative 10/02/2019 Influenza injectable quadrivalent preservative f ree 08/15/2018 Influenza, IIV3, injectable 08/20/2017 Tdap 04/02/2017 Family History Medical History Relation Name Comments Alcohol abuse Father COPD Father Multiple sclerosis Father Asthma Half-Brother Mental illness Half-Brother Mental illness Half-Sister Breast cancer Mother Osteoporosis Mother Rheum arthritis Mother Relation Name Status Comments Father Half-Brother Alive Half-Sister Alive Mother Social History Tobacco Use Types Packs/Day Years Used Date Smoking Tobacco: Never Smokeless Tobacco: Never Tobacco Cessation:Counseling Given: Not Answered Alcohol Use Standard Drinks/Week Comments Yes 1 [...] Don't know 03/21/2024 10 :13 AM EDT Last Filed Vital Signs Vital Sign Reading [...] Mass Index 24.39 07/09/2025 12:19 PM EDT Plan of Treatment Health Maintenance Due Date Last Done Comments CT Colonography 1980 Colonoscopy 1980 Colorectal Cancer Screening 1980 FIT DNA/Cologuard 1980 FIT 1980 FOBT 1980 HIV Screening 1980 Sigmoidoscopy 1980 Family Planning (PISQ) 01/30/1995 HPV Vaccines (1 - 3-dose series) 01/30/1995 Hepatitis C Screening 01/30/1998 Hepatitis B Vaccines (1 of 3 - 19+ 3-dose series) 01/30/1999 COVID-19 Vaccine (2023-2 5 season) 2024 Influenza Vaccine (#1) 2025 9, 08/15/2018, 08/20/2017 Alcohol/Substance Use Screening 07/09/2026 07/09/2025 Depression Screening 07/09/2026 07/09/2025, 07/09/2025 Disability Screening 07/09/2026 07/09/2025 SDOH Screening 07/09/2026 07/09/2025 Tobacco Screening 07/09/2026 07/09/2025 DTaP/Tdap/Td Vaccines (2 - T d or Tdap) 04/02/2027 04/02/2017 Mammogram 06/07/2027 06/07/2025, 04/03/2024 Cervical Cancer Screening 05/10/2028 HPV/Cotest 05/10/2028 Pap Smear 05/10/2028 05/10/2023, 08/04/2021 Lipid Panel 03/22/2029 03/22/2024 Zoster Vaccines (1 of 2) 01/30/2030 RSV Patients and Patients Aged 60 years or older (1 - 1-dose 75+ series) 01/30/2055 HIB Vaccines Aged Out No longer eligi ble based on patient's age to complete this topic Hepatitis A Vaccines Aged Out No long er eligible based on patient's age to complete this topic IPV Vaccines Aged Out No longer eligi ble based on patient's age to complete this topic Meningococcal B Vaccine Aged Out No l onger eligible based on patient's age to complete this topic Meningococcal Vaccine Aged Out No tommy shen eligible based on patient's age to complete this topic Pneumococcal Vaccine: Pediatrics (0 to 5 Years) and At-Risk Patients (6 to 49) Years Aged Out No longer eligible b ased on patient's age to complete this topic RSV under 20 months Aged Out No longe r eligible based on patient's age to complete this topic Rotavirus Vaccines Aged Out No longer eligible based on patient's age to complete this topic Procedures Procedure Name Priority Date/Time Associated Diagnosis Comments BI MAMMOGRAM SCREENING TOMOSYNTHESIS BILATERAL Routine 06/07/2025 3:55 PM EDT LIPID PANEL, STANDARD Routine 03/22/2024 1:47 PM EDT Routine history and physical examination of adult BMI 24.0-24.9, adult Chronic migraine Major depression, recurrent, chronic (CMS/HCC) Ganglion cyst of wrist, left HM PAP/HPV Routine 05/10/2023 5:58 PM EDT from Last 3 Months or Most Recently Relevant to Health Maintenance Results * BI Mammogram Screening Tomosynthesis Bilateral (06/07/2025 3:55 PM EDT) Anatomical Region Laterality Modality Breast Bilateral Mammography 06/07/2025 3:55 PM EDT Narrative 06/18/2025 11:15 AM EDT [facility] [place] [address] Mammography Report Signed Patient: Evita Rivera MR#: [id number] 8 : 1980 Acct:[id number] Age/Sex: 45 / F ADM Date: 06/07/25 Loc: HO.MAMMO Attending Dr: Giovana Reyes DO Ordering Physician: Giovana Reyes DO Results: 0I ncomplete: Needs Additional Imaging Evaluation Date of Service: 06/07/25 Follow Up: Additional Imagi ng Procedure(s): MM tomosynthesis screening BI Accession Number(s): [id number] cc: Giovana Reyes DO EXAMINATION: MM SCREENING DIGITAL BREAST TOMOSYNTHESIS, BILATERAL CLINICAL INFORMATION: Screening. Asymptomatic. COMPARISON: Mammography: Comparison is made with available priors TECHNIQUE: Digital breast mammography with tomosynthesis is performed in both the craniocaudal and mediolateral oblique views along with computer-aided detection (CAD). FINDINGS: The breasts are heterogeneously dense, which may obscure small masses (ACR BI-RADS breast composition Category c). Left: Focal asymmetry upper central breast middle depth could just be related to overlapping breast tissue. No suspicious calcifications or other abnormal findings. Right: There are no significant masses, abnormal calcifications, or other abnormalities. MM/MM tomosynthesis screening BI IMPRESSION: Additional imaging is recommended ASSESSMENT: BI-RADS BI-RADS 0 - Incomplete: Needs additional Imaging. RECOMMENDATION: 1. Additional views of the left breast. 2. Targeted ultrasound if warranted after review of the additional views. 3. Radiology department staff will contact the patient for additional imaging. Additional Imaging required This examination should not preclude the clinical evaluation of a suspicious palpable abnormality. This patient's information was entered into a reminder system with a target due date for their next mammogram. Electronically signed by: Larissa Small DO 06/18/2025 11:12 AM EDT Dictated By: Larissa Small DO Signed By: <Electronically signed by Larissa Small DO in OV> 06/18/25 1112 DD/ 1555 TD/TT: 06/07/25 1615 Business Initiatives Manager: Procedure Note Donotuseinterpreter, Image - 06/18/2025 [facility] [place] [address] Mammography Report Signed Patient: Kiara RiveracaMR#: [id number] 8 : 1980Acct:[id number] Age/Sex: 45 / FADM Date: 06/07/25 Loc: HO.MAMMO Attending Dr: Giovana Reyes DO Ordering Physician: Giovana Reyesults: 0I ncomplete: Needs Additional Imaging Evaluation Date of Service: 06/07/25Follow Up: Additional Imagi ng Procedure(s): MM tomosynthesis screening BI Accession Number(s): [id number] cc: Giovana Reyes DO EXAMINATION: MM SCREENING DIGITAL BREAST TOMOSYNTHESIS, BILATERAL CLINICAL INFORMATION: Screening. Asymptomatic. COMPARISON: Mammography: Comparison is made with available priors TECHNIQUE: Digital breast mammography with tomosynthesis is performed in both the craniocaudal and mediolateral oblique views along with computer-aided detection (CAD). FINDINGS: The breasts are heterogeneously dense, which may obscure small masses (ACR BI-RADS breast composition Category c). Left: Focal asymmetry upper central breast middle depth could just be related to overlapping breast tissue. No suspicious calcifications or other abnormal findings. Right: There are no significant masses, abnormal calcifications, or other abnormalities. MM/MM tomosynthesis screening BI IMPRESSION: Additional imaging is recommended ASSESSMENT: BI-RADS BI-RADS 0 - Incomplete: Needs additional Imaging. RECOMMENDATION: 1. Additional views of the left breast. 2. Targeted ultrasound if warranted after review of the additional views. 3. Radiology department staff will contact the patient for additional imaging. Additional Imaging required This examination should not preclude the clinical evaluation of a suspicious palpable abnormality. This patient's information was entered into a reminder system with a target due date for their next mammogram. Electronically signed by: Larissa Small DO 06/18/2025 11:12 AM EDT RP Dictated By: Larissa Small DO Signed By: <Electronically signed by Larissa Small DO in OV> 06/18/25 1112 DD/ 1555 TD/TT: 06/07/25 1615 Business Initiatives Manager: Giovana Reyes DO IMG BI PROCEDURES Final Resu lt * (ABNORMAL) Lipid Panel, Standard (03/22/2024 1:47 PM EDT) Triglycerides 89 <150 mg/dL [facility] Comment:Desirable Triglyceri de: less than 150 mg/dLBorderline High Triglyceride 150-199 mg/dLHigh Triglyceride: 200-499 mg/dLVery High Triglyceride: greater than or equal to 5OO mg/dL Cholesterol 214(H) <200 mg/dL [facility] Comment:Desirable Cholestero l: less than 200 mg/dLBorderline High Cholesterol: 200-239 mg/dLHigh Cholesterol: greater than 239 mg/dL LDL Cholesterol Calculated 130(H) <100 mg/dL [facility] Comment:Desirable LDL: less than 100 mg/dLNear Optimal/Above Optimal LDL: 110- 129 mg/dLBorderline High LDL: 130-159 mg/dLHigh LDL: 160-189 mg/dLVery High LDL: greater than or equal to 190 mg/dL HDL Cholesterol 67 >40 mg/dL [facility] Comment:Desirable HDL: great er than 40 mg/dL Note: This HDL assay may give artificially low results in patients with liver disease. Blood Venous blood specimen / Unknown 03/22/2024 1:47 PM EDT 03/22/2024 4:15 PM EDT Giovana Reyes DO LAB BLOOD ORDERABLES Final R esult [facility] [address] [place] [address] [phone] * HM PAP/HPV (05/10/2023 5:58 PM EDT) Historical Provider HEALTH MAINTENANCE Final Result from Last 3 Months or Most Recently Relevant to Health Maintenance Insurance [employer] Care Teams Masseur/Masseuse Relationship Specialty Start Date End Date Giovana Reyes DO [address] [place] [address] PCP - General Family Medicine 03/22/24
--- OUTSIDE RECORDS SUMMARY | 2025-07-10 16:26 | XMS_ITS | Encounter Summary ---
Author Organization [employer] Address [address] [facility] 7t [place] [address] Care Team Providers Care Wet Finisher Wool Name Role Phone AmyGiovana Primary Care Provider [phone] Encounter Details Date Type Department Care Team (Latest Contact Info) Description 07/08/2025 Travel Social History Tobacco Use Types Packs/Day [...] Access Q2 Not on file 07/09/2025 Comments Unknown Sex and Gender Information Value [...] documented as of this encounter Care Teams Wet Finisher Wool Relationship Specialty Start Date End Date Giovana Reyes DO [address] [place] [address] PCP - General Family Medicine 03/22/24 documented as of this encounter
[2025-07-10 18:24] LABS: Hematocrit 37.2 % (37.0-47.0); Hemoglobin 12.8 g/dl (12.0-16.0); Hemoglobin A1C 116.7373 umol/L; Mean Corpuscular HGB Conc 34.4 g/dl (31.0-35.0); Mean Corpuscular Hemoglobin 30.6 pg (27.0-33.0); Mean Corpuscular Volume 89.0 fL (80.0-98.0); NRBC Abs Auto 0.000 X10*3/uL (0.0-0.012); NRBC Pct Auto 0.0 /100WBC (0.0-0.2); Platelet Count 251 X10*3/uL (160-400); Red Blood Count 4.18 X10*6/uL (4.20-5.50); Total Hemoglobin (HGBA1C) 3348.3437 umol/L; White Blood Count 7.5 X10*3/uL (4.8-10.8)
[2025-07-10 18:41] LABS: Alanine Aminotransferase 22 U/L (0-31); Albumin Level 4.2 g/dL (3.5-5.0); Alkaline Phosphatase 61 U/L (39-117); Anion Gap 10 (12-20); Aspartate Amino Transferase 23 U/L (5-31); Blood Urea Nitrogen 8 mg/dL (9-16); Calcium 8.9 mg/dL (8.4-10.2); Carbon Dioxide 24 mmol/L (22-29); Chloride 108 mmol/L (96-108); Cholesterol 171 mg/dL (<200); Estimated Glomerular Filt Rate > 60; HDL Cholesterol 49 mg/dL (>40); Potassium 3.3 mmol/L (3.3-5.1); Sodium 139 mmol/L (135-145); Total Protein 6.7 g/dL (6.5-8.0); Triglycerides 108 mg/dL (<150)
[2025-07-10 19:00] LABS: Free T4 (Free Thyroxine) 0.87 ng/dL (0.71-1.85); Thyroid Stimulating Hormone 1.09 uIU/mL (0.32-4.0)
[2025-07-11 08:30] LABS: HBS Num1 10.18 mIU/mL (0-7.99); HBsAGNum1 0.48 S/CO (0.00-0.99); HIV Num 1 0.08 S/CO (0.00-0.99); Hepatitis B Surface Antigen Negative (Negative); ~HepC Num1 0.18 S/CO (0.00-0.79); ~Hepatitis C Antibody Nonreactive (Nonreactive)
[2025-07-11 10:49] LABS: HBS Num2 10.87 mIU/mL (0-7.99); HBS Num3 9.49 mIU/mL (0-7.99); ~Hepatitis B Surface Antibody GRAYZONE (Nonreactive)
== END 2025-07-10 15:31 | disposition home or self-care (01) ==
LOC: HO.HHCL 15:30
PROVIDERS: PCP Family Medicine; Visit Provider Family Medicine
DX: Z13.6 Encounter for screening for cardiovascular disorders (principal); Z11.4 Encounter for screening for human immunodeficiency virus [HIV]; Z11.59 Encounter for screening for other viral diseases; Z11.3 Encounter for screening for infections with a predominantly sexual mode of transmission; Z13.1 Encounter for screening for diabetes mellitus; G43.909 Migraine, unspecified, not intractable, without status migrainosus; F41.9 Anxiety disorder, unspecified; R19.8 Other specified symptoms and signs involving the digestive system and abdomen; R19.7 Diarrhea, unspecified
CPT/HCPCS: 36415; 80048; 80061; 80076; 82306; 83036; 84439; 84443; 85027; 86592; 86706; 86803; 87340; 87389

== ENCOUNTER 2025-07-12 13:28 | Outpatient (REF) | payer OTHER, MEDICAID, SELFPAY ==
--- OUTSIDE RECORDS SUMMARY | 2025-07-09 11:45 | XMS_ITS | Encounter Summary ---
Author Organization [employer] Address [address] [place] [address] [address] [address] Care Team Providers Care Special Agent Group Insurance Name Role Phone Giovana Reyes DO Primary Care Provider Reason for Referral * Consultation (Urgent) - Authorized Specialty Diagnoses / Procedures Referred By Lorenzo sandoval Referred To Contact Behavioral Health Diagnoses Anxiety Giovana Reyes DO [address] [place] [address] Phone: tel: fax: Referral ID Status Reason Start Date Expiration Date Visits Requested Visits Authorized [id number] Authorized Specialty Services Required 07/09/2025 07/09/2026 1 1 * Consultation (Urgent) - Pending Review Specialty Diagnoses / Procedures Referred By Lorenzo sandoval Referred To Contact Gastroenterology Diagnoses Alternating constipation and diarrhea Bloody diarrhea Giovana Reyes DO [address] [place] [address] Phone: tel: fax: Referral ID Status Reason Start Date Expiration Date Visits Requested Visits Authorized [id number] Pending Review Specialty Services Required 07/09/2025 07/09/2026 1 1 Encounter Details Date Type Department Care Team (Late st Contact Info) Description 07/09/2025 11:45 AM EDT Office Visit [facility] [address] [place] [address] Giovana Reyes DO [address] [place] [address] Anxiety (Primary Dx); Alternating constipation and diarrhea; [...] PM EDT Shelby Thurman MA * Feeling down, depressed, or hopeless [...] awful might happen 2 07/09/2025 1:42 PM EDT Cassidy Thurman MA THEO-7 Total Score 14 07/09/2025 1:42 PM EDT Cassidy Thurman MA documented as of this encounter Plan of Treatment Scheduled Orders Name Type Priority Associated Diagnoses Orde r Schedule Chlamydia/N. Gonorrhoeae RNA, TMA, Urogenitial Microbiology Routine Anxiety Alternating constipation and diarrhea Bloody diarrhea Chronic migraine Ordered: 07/09/2025 Stool - Gastrointestinal panel Microbiology Routine Anxiety [...] Expires: 01/06/2027 documented as of this encounter Procedures Procedure Name Priority Date/Time Associated Diagnosis Comments VITAMIN D,25-OH,TOTAL,IA Routine 07/10/2025 3:38 PM EDT Anxiety Alternating constipation and diarrhea Bloody diarrhea Chronic migraine HEPATITIS C AB W/REFL TO HCV RNA, QN, PCR Routine 07/10/2025 3:38 PM EDT Anxiety Alternating constipation and diarrhea Bloody diarrhea Chronic migraine HEPATITIS B SURFACE ANTIGEN, EIA Routine 07/10/2025 3:38 PM EDT Anxiety Alternating constipation and diarrhea Bloody diarrhea Chronic migraine RPR (MONITOR) W/REFL TITER Routine 07/10/2025 3:38 PM EDT Anxiety Alternating constipation and diarrhea Bloody diarrhea Chronic migraine HIV 1/2 ANTIGEN/ANTIBODY, FOURTH GENERATION W/RFL Routine 07/10/2025 3:38 PM EDT Anxiety Alternating constipation and diarrhea Bloody diarrhea Chronic migraine HEPATITIS B SURFACE ANTIBODY, QUALITATIVE Routine 07/10/2025 3:38 PM EDT Anxiety Alternating constipation and diarrhea Bloody diarrhea Chronic migraine CBC Routine 07/10/2025 3:38 PM EDT Anxiety Alternating constipation and diarrhea Bloody diarrhea Chronic migraine TSH Routine 07/10/2025 3:38 PM EDT Anxiety Alternating constipation and diarrhea Bloody diarrhea Chronic migraine T4, FREE Routine 07/10/2025 3:38 PM EDT Anxiety Alternating constipation and diarrhea Bloody diarrhea Chronic migraine HEMOGLOBIN A1C Routine 07/10/2025 3:38 PM EDT Anxiety Alternating constipation and diarrhea Bloody diarrhea Chronic migraine HEPATIC FUNCTION PANEL Routine 07/10/2025 3:38 PM EDT Anxiety Alternating constipation and diarrhea Bloody diarrhea Chronic migraine LIPID PANEL, STANDARD Routine 07/10/2025 3:38 PM EDT Anxiety Alternating constipation and diarrhea Bloody diarrhea Chronic migraine BASIC METABOLIC PANEL Routine 07/10/2025 3:38 PM EDT Anxiety Alternating constipation and diarrhea Bloody diarrhea Chronic migraine documented in this encounter Results * Hepatitis B Surface Antibody, Qualitative (07/10/2025 3:38 PM EDT) ~Hepatitis B Surface Antibody GRAYZONE Nonreactive [facility] Comment:GRAYZONE: 8.00 mIU/m L TO 11.99 mIU/mLTHE IMMUNE STATUS OF THE INDIVIDUAL SHOULD BE FURTHERASSESSED BY CONSIDERING OTHER FACTORS, SUCH CLINICALSTATUS, FOLLOW-UP TESTING, ASSOCIATED RISK FACTORS, AND THEUSE OF ADDITIONAL DIAGNOSTIC INFORMATION. Blood Venous blood specimen / Unknown 07/10/2025 3:38 PM EDT 07/10/2025 5:39 PM EDT Giovana Reyes DO LAB BLOOD ORDERABLES Final R esult Performing Organization Address City/[facility]/ZIP Co de Phone Number [facility] [address] [place] [address] [phone] * RPR (Monitor) with Reflex to??Titer (07/10/2025 3:38 PM EDT) RPR (Monitor) w/Refl Titer NON-REACTI VE NON-REACT BRANDT [facility] Comment:THIS TEST WAS PERFOR MED AT:[facility] [place] [id number] SAHA MD Rapid Plasma Reagin Ab Titer TNP [facility] Blood Venous blood specimen / Unknown 07/10/2025 3:38 PM EDT 07/10/2025 5:39 PM EDT us Giovana Dixonkirstenraymond [facility] LAB BLOOD ORDERABLES Final R esult Performing Organization Address [facility] Co de Phone Number [facility] [address] [place] [phone] * Hepatitis C Antibody with Reflex to HCV, RNA, Quantitative, Real-Time PCR (07/10/2025 3:38 PM EDT) Hepatitis C Antibody Nonreactive Nonreactive [facility] Comment:Antibodies to HCV no t detected; does not exclude early acuteHCV infection. Blood Venous blood specimen / Unknown 07/10/2025 3:38 PM EDT 07/10/2025 5:39 PM EDT Giovana Reyes [facility] LAB BLOOD ORDERABLES Final R esult Performing Organization Address [facility]/ZIP Co de Phone Number [facility] [address] [place] [phone] * HIV-1/2 Antigen and Antibodies, Fourth Generation, with Reflexes (07/10/2025 3:38 PM EDT) Pathologist [facility] HIV AB/AG Nonreactive Nonreactive [facility] Comment:HIV-1 p24 Ag and/or HIV-1/HIV-2 Ab not detected.A test result that is nonreactive does not exclude thepossibility of exposure to or infection with HIV-1 and/orHIV-2. Nonreactive results in this assay for individualswith prior exposure to HIV-1 and/or HIV-2 may be due toantigen and antibody levels that are below the limit ofdetection of this assay.The INVOLTA HIV Ag/Ab Combo assay result andsupplemental assay results should be interpreted inconjunction with the patient's clinical presentation,history and other laboratory results. If the results areinconsistent with clinical evidence, additional testing issuggested to confirm the result. Blood Venous blood specimen / Unknown 07/10/2025 3:38 PM EDT 07/10/2025 5:39 PM EDT Giovana [facility] LAB BLOOD ORDERABLES Final R esult Performing Organization Address City/[facility]/ZIP Co de Phone Number [facility] [address] [place] [phone] * Hepatitis B surface antigen, EIA (07/10/2025 3:38 PM EDT) [facility] Hepatitis B Surface Ag Negative Negative [facility] Blood Venous blood specimen / Unknown 07/10/2025 3:38 PM EDT 07/10/2025 5:39 PM EDT Giovana [employer] LAB BLOOD ORDERABLES Final R esult Performing Organization Address City/[facility]/ZIP Co de Phone Number [facility] [address] [place] [phone] * (ABNORMAL) Basic Metabolic Panel (07/10/2025 3:38 PM EDT) [facility] Sodium 139 135 - 145 mmol/L [facility] Potassium 3.3 3.3 - 5.1 mmol/L [facility] Chloride 108 96 - 108 mmol/L [facility] Carbon Dioxide 24 22 - 29 mmol/L [facility] Anion Gap 10(L) 12 - 20 [facility] Urea Nitrogen (BUN) 8(L) 9 - 16 mg/dL [facility] Creatinine, Serum 0.80 0.5 - 1.4 mg/dL [facility] Estimated Glomerular Filt Rate >60 [facility] Comment:Chronic Kidney Disea se: Estimated GFR < 60 mL/min/1.39d8Swilwo Kidney Disease: Estimated GFR < 15 mL/min/1.73m2 Glucose 119(H) 60 - 115 mg/dL [facility] Calcium 8.9 8.4 - 10.2 mg/dL [facility] Blood Venous blood specimen / Unknown 07/10/2025 3:38 PM EDT 07/10/2025 5:39 PM EDT us Giovana Reyes DO LAB BLOOD ORDERABLES Final R esult [facility] [address] [place] [phone] * (ABNORMAL) CBC (07/10/2025 3:38 PM EDT) White Blood Count 7.5 4.8 - 10.8 X10*3/uL [facility] Red Blood Count 4.18(L) 4.20 - 5.50 X10*6/uL [facility] Hemoglobin 12.8 12.0 - 16.0 g/dl [facility] Hematocrit 37.2 37.0 - 47.0 % [facility] Mean Corpuscular Volume 89.0 80.0 - 98.0 fL [facility] Mean Corpuscular Hemoglobin 30.6 27.0 - 33.0 pg [facility] Mean Corpuscular HGB Conc 34.4 31.0 - 35.0 g/dl [facility] Red Cell Distribution Width 13.1 11.0 - 16.0 % [facility] Platelet Count 251 160 - 400 X10*3/uL [facility] Mean Platelet Volume 11.1 9.4 - 12.3 fL [facility] NRBC Pct Auto 0.0 0.0 - 0.2 /100WBC [facility] NRBC Abs Auto 0.000 0.0 - 0.012 X10*3/uL [facility] Blood Venous blood specimen / Unknown 07/10/2025 3:38 PM EDT 07/10/2025 5:39 PM EDT Giovana Reyes LAB BLOOD ORDERABLES Final R esult Performing Organization Address [facility] Co de Phone Number [facility] [address] [place] [phone] * Hemoglobin A1c (07/10/2025 3:38 PM EDT) Hemoglobin A1c 5.3 <6.0 % [facility] Comment:Hemoglobin A1C Refer ence Range Adults: 4.8 - 6.0 % Non diabetic: < 6.0 % Goal: < 7.0 %Additional Action Suggested: > 8.0 %Note: Hemoglobin A1c results are invalid for patients with abnormal amounts of HbF. Blood transfusions may impact the HbA1c concentration in the patient sample. Estimated Average Glucose 105 mg/dL [facility] Comment:eAG = Estimated ave rage glucose which is %A1C expressed asaverage glucose, using the formula of the O8D-ManqcwtIvprdln Glucose study (ADAG), Diabetes Care, Vol.31,#8,Jun. 2007 Blood Venous blood specimen / Unknown 07/10/2025 3:38 PM EDT 07/10/2025 5:39 PM EDT Giovana Reyes [facility] LAB BLOOD ORDERABLES Final R esult Performing Organization Address [facility]/ZIP Co de Phone Number [facility] [address] [place] [phone] * Hepatic Function Panel (07/10/2025 3:38 PM EDT) Bilirubin, Total 0.9 0.0 - 1.0 mg/dL [facility] Bilirubin, Direct 0.3 0.0 - 0.5 mg/dL [facility] Aspartate Amino Transferase 23 5 - 31 U/L [facility] Alanine Aminotransferase 22 0 - 31 U/L [facility] Total Protein 6.7 6.5 - 8.0 g/dL [facility] Albumin Level 4.2 3.5 - 5.0 g/dL [facility] Alkaline Phosphatase 61 39 - 117 U/L [facility] Blood Venous blood specimen / Unknown 07/10/2025 3:38 PM EDT 07/10/2025 5:39 PM EDT us Giovana Reyes DO LAB BLOOD ORDERABLES Final R esult [facility] [address] [place] [phone] * Vitamin D, 25-Hydroxy, Total, Immunoassay (07/10/2025 3:38 PM EDT) Vitamin D 25-OH Total 69.2 >30 ng/mL [facility] Comment: Health Based Reference Values*< 20 ng/mL Yarqbjpmd45-62 ng/mL Insufficient> 30 ng/mL Sufficient*Wilbert BUNCH. N Engl J Med. 2007;357:266-280There is no well-established upper level of normal vitamin Dlevels. Some laboratories use 50 ng/mL as an upper limit ofnormal. However, toxicity is patient-dependent and may occurat any level. Careful correlation with the patient'spresentation is necessary and, if there is concern forvitamin D toxicity, treatment should be consideredirrespective of the serum level.Care must be taken in interpreting Vitamin D results fromdifferent laboratories and methodologies. Published datademonstrated that results from patients undergoinghemodialysis may show a negative bias when tested withvarious automated 25-OH vitamin D assays when compared toLC-MS/MS.When testing samples from patients whose predominant form ofVitamin D is Vitamin D2, such as patients receiving VitaminD2 supplementation, results that are subtherapeutic shouldbe confirmed with another method such as LC-MS/MS. Blood Venous blood specimen / Unknown 07/10/2025 3:38 PM EDT 07/10/2025 5:39 PM EDT Giovana Reyes DO LAB BLOOD ORDERABLES Final R esult Performing Organization Address [facility] Co de Phone Number [facility] [address] [place] [phone] * TSH (07/10/2025 3:38 PM EDT) Pathologist [facility] Thyroid Stimulating Hormone 1.09 0.32 - 4.0 uIU/mL [facility] Comment:TSH 3rd Generation ( [facility]) Blood Venous blood specimen / Unknown 07/10/2025 3:38 PM EDT 07/10/2025 5:39 PM EDT Giovana Reyes DO LAB BLOOD ORDERABLES Final R esult Performing Organization Address [facility] Co de Phone Number [facility] [address] [place] [phone] * (ABNORMAL) Lipid Panel, Standard (07/10/2025 3:38 PM EDT) Triglycerides 108 <150 mg/dL [facility] Comment:Desirable Triglyceri de: less than 150 mg/dLBorderline High Triglyceride 150-199 mg/dLHigh Triglyceride: 200-499 mg/dLVery High Triglyceride: greater than or equal to 5OO mg/dL Cholesterol 171 <200 mg/dL [facility] Comment:Desirable Cholestero l: less than 200 mg/dLBorderline High Cholesterol: 200-239 mg/dLHigh Cholesterol: greater than 239 mg/dL LDL Cholesterol Calculated 101(H) <100 mg/dL [facility] Comment:Desirable LDL: less than 100 mg/dLNear Optimal/Above Optimal LDL: 110- 129 mg/dLBorderline High LDL: 130-159 mg/dLHigh LDL: 160-189 mg/dLVery High LDL: greater than or equal to 190 mg/dL HDL Cholesterol 49 >40 mg/dL [facility] Comment:Desirable HDL: great er than 40 mg/dL Note: This HDL assay may give artificially low results in patients with liver disease. Blood Venous blood specimen / Unknown 07/10/2025 3:38 PM EDT 07/10/2025 5:39 PM EDT Giovana Reyes DO LAB BLOOD ORDERABLES Final R esult Performing Organization Address [facility]/ZIP Co de Phone Number [facility] [address] [place] [phone] * T4, Free (07/10/2025 3:38 PM EDT) Free T4 (Free Thyroxine) 0.87 0.71 - 1.85 ng/dL [facility] Blood Venous blood specimen / Unknown 07/10/2025 3:38 PM EDT 07/10/2025 5:39 PM EDT us Gioavna Reyes DO LAB BLOOD ORDERABLES Final R esult Performing Organization Address [facility] Co de Phone Number [facility] [address] [place] [phone] documented in this encounter Visit Diagnoses Diagnosis Anxiety- Primary Anxiety state, unspecified Alternating constipation and diarrhea Bloody diarrhea Diarrhea Chronic migraine documented in this encounter Additional Health Concerns Assessment Noted Time PHQ-9 Depression Total Score: 4 07/09/20 25 1:40 PM EDT documented as of this encounter Care Teams Special Agent Group Insurance Relationship Specialty Start Date End Date Giovana Reyes DO [address] [place] [phone] PCP - General Family Medicine 03/22/24 documented as of this encounter
--- NOTE | ~2025-07-12 | US_ITS ---
EXAMINATIONS: 1. MM DIAGNOSTIC DIGITAL BREAST TOMOSYNTHESIS, LEFT 2. Targeted ultrasound of the left breast CLINICAL INFORMATION: Callback from screening for left breast focal asymmetry in the upper central breast middle depth. COMPARISON: Comparison made to multiple prior, most recent June 07, 2025, and most remote December 15, 2021. TECHNIQUE: Digital breast tomosynthesis is performed in both full-field ML 90 degrees views along with computer-aided detection (CAD). Synthesized 2D images are generated from the tomosynthesis. Spot compression tomosynthesis images were obtained. FINDINGS: BREAST COMPOSITION: There are scattered areas of fibroglandular density (ACR BI-RADS breast composition Category b). LEFT BREAST: Previously suggested focal asymmetry in the upper breast middle depth partially effaces on today's additional images. On today's images, the local parenchyma has similar appearance to prior study in 2021. Mammographic findings most likely represented overlapping fibroglandular breast tissue. Targeted ultrasound of the left breast was performed at the location of the mammographic finding. The survey performed throughout the 11:00-1:00 axis did not reveal suspicious sonographic findings. US/US breast LT limited mamm only IMPRESSION: LEFT BREAST: Negative, no mammographic evidence of malignancy. Normal interval follow-up is recommended in 12 months. ASSESSMENT: BI-RADS 1 - Negative RECOMMENDATION: 1 year F/U Results were discussed with the patient at time of visit. This patient's information was entered into a reminder system with a target due date for their next mammogram. Electronically signed by: Jaswant Gallagher MD 07/12/2025 03:28 PM PADMINIT
--- OUTSIDE RECORDS SUMMARY | 2025-07-12 14:09 | XMS_ITS | Encounter Summary ---
Author Organization [employer] Address [address] [facility] 7t [place] [address] Care Team Providers Care Elementary Secretary Name Role Phone Giovana Reyes DO Primary Care Provider + [phone] Encounter Details Date Type Department Care Team ([facility] st Contact Info) Description 12/30/2024 Orders Only [facility] [address] [place], [place] [phone] ProviderFarhana MD Social History Tobacco Use Types [...] documented as of this encounter Care Teams Elementary Secretary Relationship Specialty Start Date End Date Giovana Reyes DO [address] [place] [address] PCP - General Family Medicine 03/22/24 documented as of this encounter
--- OUTSIDE RECORDS SUMMARY | 2025-07-12 14:09 | XMS_ITS | Encounter Summary ---
Author Organization [employer] Address [address] [facility] [address]t [place] [address] Care Team Providers Care Moisture Conditioner Operator Name Role Phone AmyGiovana Primary Care Provider [phone] Encounter Details Date Type Department Care Team [...] documented as of this encounter Care Teams Moisture Conditioner Operator Relationship Specialty Start Date End Date Giovana Reyes DO [address] [place] [address] PCP - General Family Medicine 03/22/24 documented as of this encounter
--- OUTSIDE RECORDS SUMMARY | 2025-07-12 14:09 | XMS_ITS | Encounter Summary ---
Author Organization [employer] Address [address] [place] [address] 7 [place] [address] Care Team Providers Care Airline Counter Agent Name Role Phone Giovana Reyes DO Primary Care Provider [phone] Reason for Visit * Reason Onset Date Comments Letter for School/Work 07/12/2025 Encounter Details Date Type Department Care Team ([facility] st Contact Info) Description 07/12/2025 Telephone [facility] [address] [place], [place] [phone] Giovana Reyes DO [address] [place], [place] [phone] Letter for School/Work Social History Tobacco Use Types Packs/Day Years [...] encounter Miscellaneous Notes * Telephone Encounter - Agapito Surya - 07/12/2025 9:57 AM EDT TC from pt requesting an extension on her letter giving her an additional 2x weeks. Time frame she needs. 07/17-07/30 documented in this encounter Plan of Treatment Not on file documented as of this encounter Visit Diagnoses Not on filedocumented in this encounter Additional Health Concerns Assessment Noted Time PHQ-9 Depression Total Score: 4 07/09/20 1:40 PM EDT documented as of this encounter Care Teams Airline Counter Agent Relationship Specialty Start Date End Date Giovana Reyes DO [address] [place] [address] PCP - General Family Medicine 03/22/24 documented as of this encounter
--- OUTSIDE RECORDS SUMMARY | 2025-07-12 14:09 | XMS_ITS | Encounter Summary ---
Author Organization [employer] Address [address] [facility] 7t [place] [address] Care Team Providers Care Tail Dogger Name Role Phone AmyGiovana Primary Care Provider [phone] Encounter Details Date Type Department Care Team [...] documented as of this encounter Care Teams Tail Dogger Relationship Specialty Start Date End Date Giovana Reyes DO [address] [place] [address] PCP - General Family Medicine 03/22/24 documented as of this encounter
--- OUTSIDE RECORDS SUMMARY | 2025-07-12 14:09 | XMS_ITS | Encounter Summary ---
Author Organization [employer] Address [address] [place] [address] [address] [place] [address] Care Team Providers Care Central Supply Technician Name Role Phone Giovana Reyes DO Primary Care Provider + [phone] Reason for Visit * Reason Onset Date Comments Results 07/12/2025 Encounter Details Date Type Department Care Team ([facility] st Contact Info) Description 07/12/2025 Telephone [facility] [address] [place], [place] [phone] Giovana Reyes DO [address] [place], [place] [phone] Results Social History Tobacco Use Types Packs/Day Years [...] Telephone Encounter - Agapito Surya - 07/12/2025 9:56 AM EDT TC from pt requesting call back regarding Results. Type of results: Labs Date when done: 07/10/25 Facility: [facility]/ results on chart documented in this encounter Plan of Treatment Not on file documented as of this encounter Visit Diagnoses Not on filedocumented in this encounter Additional Health Concerns Assessment Noted Time PHQ-9 Depression Total Score: 4 07/09/20 1:40 PM EDT documented as of this encounter Care Teams Central Supply Technician Relationship Specialty Start Date End Date Giovana Reyes DO [address] [place] [address] PCP - General Family Medicine 03/22/24 documented as of this encounter
--- OUTSIDE RECORDS SUMMARY | 2025-07-12 14:09 | XMS_ITS | Clinical Summary ---
Author Organization [employer] Address [address] [place] [address] [address] [place] [address] Care Team Providers Care Product Marketing Analyst Name Role Phone Giovana Reyes DO Primary Care Provider [phone] Allergies No known active allergies Medications * [...] increased growth x 2 years -will contact [facility] re: required paperwork Encounters * This document contains information received from the source organization and may not represent a complete record from that organization. Date Type Department Care Team Description 07/12/2025 Telephone [facility] [address] Giovana Reyes DO Letter for School/Work 07/12/2025 Telephone [facility] [place] [address] Giovana Reyes DO Results 07/09/2025 11:45 AM EDT Office Visit [facility] [facility] [phone] Giovana Reyes DO Anxiety (Primary Dx); Alternating constipation and diarrhea; Bloody diarrhea; Chronic migraine 07/09/2025 Travel 07/08/2025 Travel 07/06/2025 Telephone [facility] MEDICINE [address] [place] [phone] Giovana Reyes DO Chart Prep 07/05/2025 Travel 06/25/[address] [address] Giovana Reyes DO Appointment Request 06/07/2025 Orders Only [facility] MEDICINE [address] [place] [phone] Giovana Reyes DO from Last 3 Months [...] the past 12 months, has t he [employer], gas, oil or water company threatened to [...] FIT DNA/Cologuard 1980 FIT 1980 FOBT 1980 Sigmoidoscopy 1980 Family Planning (PISQ) 01/30/1995 HPV Vaccines (1 - 3-dose series) 01/30/1995 Hepatitis B Vaccines (1 of 3 - 19+ 3-dose series) 01/30/1999 COVID-19 Vaccine (1 - 2023-2 5 season) 2024 Influenza Vaccine (#1) 2025 9, 08/15/2018, 08/20/2017 Alcohol/Substance Use Screening 07/09/2026 07/09/2025 Depression Screening 07/09/2026 07/09/2025, 07/09/2025 Disability Screening 07/09/2026 07/09/2025 SDOH Screening 07/09/2026 07/09/2025 Tobacco Screening 07/09/2026 07/09/2025 DTaP/Tdap/Td Vaccines (2 - T d or Tdap) 04/02/2027 04/02/2017 Mammogram 06/07/2027 06/07/2025, 04/03/2024 Cervical Cancer Screening 05/10/2028 HPV/Cotest 05/10/2028 Pap Smear 05/10/2028 05/10/2023, 08/04/2021 Zoster Vaccines (1 of 2) 01/30/2030 Lipid Panel 07/10/2030 07/10/2025, 03/22/2024 RSV Patients and Patients Aged 60 years or older (1 - 1-dose 75+ series) 01/30/2055 HIV Screening Completed 07/10/2025 Hepatitis C Screening Completed 07/10/2025 HIB Vaccines Aged Out No longer eligi [...] Procedure Name Priority Date/Time Associated Diagnosis Comments HEPATITIS B SURFACE ANTIBODY, QUALITATIVE Routine 07/10/2025 [...] constipation and diarrhea Bloody diarrhea Chronic migraine VITAMIN D,25-OH,TOTAL,IA Routine 07/10/2025 3:38 PM EDT [...] constipation and diarrhea Bloody diarrhea Chronic migraine BI MAMMOGRAM SCREENING TOMOSYNTHESIS BILATERAL Routine 06/07/2025 3:55 PM EDT HM PAP/HPV Routine 05/10/2023 5:58 PM EDT from Last 3 Months or Most Recently Relevant to Health Maintenance Results * Vitamin D, 25-Hydroxy, Total, Immunoassay (07/10/2025 3:38 PM EDT) Vitamin D 25-OH Total 69.2 >30 ng/mL [facility] Comment: Health Based Reference Values*< 20 ng/mL Fewpzqalv93-22 ng/mL Insufficient> 30 ng/mL Sufficient*Wilbert BUNCH. N [...] DO LAB BLOOD ORDERABLES Final R esult [facility] [address] [place] [phone] * Hepatitis C Antibody with Reflex to HCV, RNA, Quantitative, Real-Time PCR (07/10/2025 3:38 PM EDT) Hepatitis C Antibody Nonreactive Nonreactive [facility] Comment:Antibodies to HCV no t detected; does not exclude early acuteHCV infection. Blood Venous blood specimen / Unknown 07/10/2025 3:38 PM EDT 07/10/2025 5:39 PM EDT Giovana Reyes DO LAB BLOOD ORDERABLES Final R esult Performing Organization Address [facility]/ZIP Co de Phone Number [facility] [address] [place] [phone] * Hepatitis B surface antigen, EIA (07/10/2025 3:38 PM EDT) Pathologist [facility] Hepatitis B Surface Ag Negative Negative [facility] Blood Venous blood specimen / Unknown 07/10/2025 3:38 PM EDT 07/10/2025 5:39 PM EDT Giovana Reyes DO LAB BLOOD ORDERABLES Final R esult Performing Organization Address [facility] Co de Phone Number [facility] [address] [place] [phone] * RPR (Monitor) with Reflex to??Titer (07/10/2025 3:38 PM EDT) Pathologist [facility] RPR (Monitor) w/Refl Titer NON-REACTI VE NON-REACT BRANDT [facility] Comment:THIS TEST WAS PERFOR MED AT:[facility] [place] [phone] SAHA MD Rapid Plasma Reagin Ab Titer TNP [facility] Blood Venous blood specimen / Unknown 07/10/2025 3:38 PM EDT 07/10/2025 5:39 PM EDT Giovana Reyes DO LAB BLOOD ORDERABLES Final R esult Performing Organization Address [facility]/ZIP Co de Phone Number [facility] [address] [place] [phone] * HIV-1/2 Antigen and Antibodies, Fourth Generation, with Reflexes (07/10/2025 3:38 PM EDT) HIV AB/AG Nonreactive Nonreactive [facility] Comment:HIV-1 p24 Ag and/or HIV-1/HIV-2 Ab not detected.A test result that is nonreactive does not exclude thepossibility of exposure to or infection with HIV-1 and/orHIV-2. Nonreactive results in this assay for individualswith prior exposure to HIV-1 and/or HIV-2 may be due toantigen and antibody levels that are below the limit ofdetection of this assay.The W4 HIV Ag/Ab Combo assay result andsupplemental assay results should be interpreted inconjunction with the patient's clinical presentation,history and other laboratory results. If the results areinconsistent with clinical evidence, additional testing issuggested to confirm the result. Blood Venous blood specimen / Unknown 07/10/2025 3:38 PM EDT 07/10/2025 5:39 PM EDT Giovana Reyes DO LAB BLOOD ORDERABLES Final R esult Performing Organization Address [facility]/ZIP Co de Phone Number [facility] [address] [place] [phone] * Hepatitis B Surface Antibody, Qualitative (07/10/2025 3:38 PM EDT) ~Hepatitis B Surface Antibody GRAYZONE Nonreactive [facility] Comment:GRAYZONE: 8.00 mIU/m L TO 11.99 mIU/mLTHE IMMUNE STATUS OF THE INDIVIDUAL SHOULD BE FURTHERASSESSED BY CONSIDERING OTHER FACTORS, SUCH CLINICALSTATUS, FOLLOW-UP TESTING, ASSOCIATED RISK FACTORS, AND THEUSE OF ADDITIONAL DIAGNOSTIC INFORMATION. Blood Venous blood specimen / Unknown 07/10/2025 3:38 PM EDT 07/10/2025 5:39 PM EDT us Giovana Reyes DO LAB BLOOD ORDERABLES Final R esult Performing Organization Address City/[facility]/ZIP Co de Phone Number [facility] [address] [place] [phone] * (ABNORMAL) CBC (07/10/2025 3:38 PM EDT) White Blood Count 7.5 4.8 - 10.8 X10*3/uL [facility] Red Blood Count 4.18(L) 4.20 - 5.50 X10*6/uL [facility] Hemoglobin 12.8 12.0 - 16.0 g/dl [facility] Hematocrit 37.2 37.0 - 47.0 % [facility] Mean Corpuscular Volume 89.0 80.0 - 98.0 fL [facility] Mean Corpuscular Hemoglobin 30.6 27.0 - 33.0 pg [facility] Mean Corpuscular HGB Conc 34.4 31.0 - 35.0 g/dl [facility] Red Cell Distribution Width 13.1 11.0 - 16.0 % [facility] Platelet Count 251 160 - 400 X10*3/uL [facility] Mean Platelet Volume 11.1 9.4 - 12.3 fL [facility] NRBC Pct Auto 0.0 0.0 - 0.2 /100WBC [facility] NRBC Abs Auto 0.000 0.0 - 0.012 X10*3/uL [facility] Blood Venous blood specimen / Unknown 07/10/2025 3:38 PM EDT 07/10/2025 5:39 PM EDT us Giovana Reyes DO LAB BLOOD ORDERABLES Final R esult [facility] [address] [place] [phone] * TSH (07/10/2025 3:38 PM EDT) Thyroid Stimulating Hormone 1.09 0.32 - 4.0 uIU/mL [facility] Comment:TSH 3rd Generation ( [facility]) Blood Venous blood specimen / Unknown 07/10/2025 3:38 PM EDT 07/10/2025 5:39 PM EDT Giovana Amy LAB BLOOD ORDERABLES Final R esult Performing Organization Address City/[facility]/ZIP Co de Phone Number [facility] [address] [place] [phone] * T4, Free (07/10/2025 3:38 PM EDT) Pathologist [facility] Free T4 (Free Thyroxine) 0.87 0.71 - 1.85 ng/dL [facility] Blood Venous blood specimen / Unknown 07/10/2025 3:38 PM EDT 07/10/2025 5:39 PM EDT Giovana Reyes LAB BLOOD ORDERABLES Final R esult [facility] [address] [place] [phone] * Hemoglobin A1c (07/10/2025 3:38 PM EDT) Hemoglobin A1c 5.3 <6.0 % [facility] Comment:Hemoglobin A1C Refer ence Range Adults: 4.8 - 6.0 % Non diabetic: < 6.0 % Goal: < 7.0 %Additional Action Suggested: > 8.0 %Note: Hemoglobin A1c results are invalid for patients with abnormal amounts of HbF. Blood transfusions may impact the HbA1c concentration in the patient sample. Estimated Average Glucose 105 mg/dL [facility] Comment:eAG = Estimated ave rage glucose which is %A1C expressed asaverage glucose, using the formula of the Z1D-IoznpapZwkggrx Glucose study (ADAG), Diabetes Care, Vol.31,#8,2007 Blood Venous blood specimen / Unknown 07/10/2025 3:38 PM EDT 07/10/2025 5:39 PM EDT Giovana Reyes DO LAB BLOOD ORDERABLES Final R esult Performing Organization Address [facility]/ZIP Co de Phone Number [facility] [address] [place] [phone] * Hepatic Function Panel (07/10/2025 3:38 PM EDT) Bilirubin, Total 0.9 0.0 - 1.0 mg/dL [facility] Bilirubin, Direct 0.3 0.0 - 0.5 mg/dL [facility] Aspartate Amino Transferase 23 5 - 31 U/L [facility] Alanine Aminotransferase 22 0 - 31 U/L [facility] Total Protein 6.7 6.5 - 8.0 g/dL [facility] Albumin Level 4.2 3.5 - 5.0 g/dL [facility] Alkaline Phosphatase 61 39 - 117 U/L [facility] Blood Venous blood specimen / Unknown 07/10/2025 3:38 PM EDT 07/10/2025 5:39 PM EDT Giovana Reyes DO LAB BLOOD ORDERABLES Final R esult Performing Organization Address [facility] Co de Phone Number [facility] [address] [place] [phone] * (ABNORMAL) Lipid Panel, Standard (07/10/2025 3:38 PM EDT) Triglycerides 108 <150 mg/dL [facility] Comment:Desirable Triglyceri de: less than 150 mg/dLBorderline High Triglyceride 150-199 mg/dLHigh Triglyceride: 200-499 mg/dLVery High Triglyceride: greater than or equal to 5OO mg/dL Cholesterol 171 <200 mg/dL [facility] Comment:Desirable Cholestero l: less than 200 mg/dLBorderline High Cholesterol: 200-239 mg/dLHigh Cholesterol: greater than 239 mg/dL LDL Cholesterol Calculated 101(H) <100 mg/dL [facility] Comment:Desirable LDL: less than 100 mg/dLNear Optimal/Above Optimal LDL: 110- 129 mg/dLBorderline High LDL: 130-159 mg/dLHigh LDL: 160-189 mg/dLVery High LDL: greater than or equal to 190 mg/dL HDL Cholesterol 49 >40 mg/dL [facility] Comment:Desirable HDL: great er than 40 mg/dL Note: This HDL assay may give artificially low results in patients with liver disease. Blood Venous blood specimen / Unknown 07/10/2025 3:38 PM EDT 07/10/2025 5:39 PM EDT us Giovana Reyes DO LAB BLOOD ORDERABLES Final R esult [facility] [address] [place] [phone] * (ABNORMAL) Basic Metabolic Panel (07/10/2025 3:38 PM EDT) Sodium 139 135 - 145 mmol/L [facility] Potassium 3.3 3.3 - 5.1 mmol/L [facility] Chloride 108 96 - 108 mmol/L [facility] Carbon Dioxide 24 22 - 29 mmol/L [facility] Anion Gap 10(L) 12 - 20 [facility] Urea Nitrogen (BUN) 8(L) 9 - 16 mg/dL [facility] Creatinine, Serum 0.80 0.5 - 1.4 mg/dL [facility] Estimated Glomerular Filt Rate >60 [facility] Comment:Chronic Kidney Disea se: Estimated GFR < 60 mL/min/[id number] Kidney Disease: Estimated GFR < 15 mL/min/1.73m2 Glucose 119(H) 60 - 115 mg/dL [facility] Calcium 8.9 8.4 - 10.2 mg/dL [facility] Blood Venous blood specimen / Unknown 07/10/2025 3:38 PM EDT 07/10/2025 5:39 PM EDT Giovana Reyes DO LAB BLOOD ORDERABLES Final R esult [facility] [address] [place] [phone] * BI Mammogram Screening Tomosynthesis Bilateral (06/07/2025 3:55 PM EDT) Anatomical Region Laterality Modality Breast Bilateral Mammography 06/07/2025 3:55 PM EDT Narrative 06/18/2025 11:15 AM EDT [address] [place] [address] Mammography Report Signed Patient: Evita Rivera MR#: [id number] 8 : 1980 Acct:[id number] Age/Sex: 45 / F ADM Date: 06/07/25 Loc: HO.MAMMO Attending Dr: Giovana Reyes DO Ordering Physician: Giovana Reyes DO Results: 0I ncomplete: Needs Additional Imaging Evaluation Date of Service: 06/07/25 Follow Up: Additional Imagi ng Procedure(s): MM tomosynthesis screening BI Accession Number(s): [id number] cc: Giovana Reyes DO EXAMINATION: MM SCREENING [...] 06/18/25 1112 DD/ 1555 TD/TT: 06/07/25 1615 Training Facilitator: Procedure Note Donotuseinterpreter, Image - [facility] [address] [place] [address] Mammography Report Signed Patient: Kiara RiveracaMR#: [id number] 8 : 1980Acct:[id number] Age/Sex: 45 / FADM Date: 06/07/25 Loc: HO.MAMMO Attending Dr: Giovana Reyes DO Ordering Physician: Giovana Reyesults: 0I ncomplete: Needs Additional Imaging Evaluation Date of Service: 06/07/25Follow Up: Additional Imagi ng Procedure(s): MM tomosynthesis screening BI Accession Number(s): [id number] cc: Giovana Reyes DO EXAMINATION: MM SCREENING [...] 06/18/25 1112 DD/ 1555 TD/TT: 06/07/25 1615 Training Facilitator: Giovana Reyes DO IMG BI PROCEDURES Final Resu lt * HM PAP/HPV (05/10/2023 5:58 PM EDT) Historical Provider HEALTH MAINTENANCE Final Result from Last 3 Months or Most Recently Relevant to Health Maintenance Insurance [facility] C3 Care Teams Product Marketing Analyst Relationship Specialty Start Date End Date Giovana Reyes DO [address] [place] [phone] PCP - General Family Medicine 03/22/24
== END 2025-07-12 13:29 | disposition home or self-care (01) ==
LOC: HO.MAMMO 13:28
PROVIDERS: PCP Family Medicine; Visit Provider Family Medicine
DX: N64.89 Other specified disorders of breast (principal)
CPT/HCPCS: 76642; 77061; 77065

== ENCOUNTER → 2025-07-12 13:30 | Outpatient (BNV) | payer OTHER, MEDICAID, SELFPAY | PROVIDERS: PCP Family Medicine; Visit Provider Radiology Body Imaging | DX: R92.8 Other abnormal and inconclusive findings on diagnostic imaging of breast (principal); R92.322 Mammographic fibroglandular density, left breast | CPT/HCPCS: 76642; 77061; 77065 ==